=== PATIENT | female | born 1985 | race American Indian/Alaskan Native ===

== ENCOUNTER 2019-11-26 20:14 | Emergency (ER) | payer OTHER ==
[~2019-11-26] VITALS: Ht 162.6 cm; Wt 72.6 kg
--- OUTSIDE RECORDS SUMMARY | ~2019-11-26 | XMS | Encounter Summary ---
Demographics + + + | Address | [address] | | | [place] [address] | + + + | Home Phone | | + + + | Preferred Language | Unknown | + + + | Marital Status | Single | + + + | Restoration Affiliation | Unknown | + + + | Race | or | + + + | Ethnic Group | Not or | + + + Author + + + | Author | [facility] | + + + | Organization | [facility] | + + + | Address | Unknown | + + + | Phone | Unavailable | + + + Support + + +---------+ + | Name | Relationship | Address | Phone | + + +---------+ + | Rajesh Munoz | ECON | Unknown | | + + +---------+ + Care Team Providers + +------+ + | Care Instructor Dramatic Arts Name | Role | Phone | + +------+ + | No Pcp Per Patient | PCP | Unavailable | + +------+ + Encounter Details +--------+ + + + + | Date | Type | Department | Care Team | Description | +--------+ + + + + | 11/27/ | Telephone | Family Medicine at | Buzz Ramirez, | | | 2018 | | Johnathon Pina | [place], [employer] [address] | | | | | [address] | Division [facility] | | | | | [place], [place] | [address] [place], [place] | | | | | [address] | [address] | | | | | [phone] | [phone] | | | | | | | | +--------+ + + + + Social History + + + +--------+------+ | Tobacco Use | Types | Packs/Day | Years | Date | | | | | Used | | + + + +--------+------+ | Current Every Day | Cigarettes, | | | | | Smoker | E-cigarettes | | | | + + + +--------+------+ + +---+---+---+ | Smokeless Tobacco: | | | | | Never Used | | | | + +---+---+---+ + + | Comments: 1-2 cigarettes daily - currently quitting | + + + + +---------+ + | Alcohol Use | Drinks/Week | oz/Week | Comments | + + +---------+ + | No | | | | + + +---------+ + + + + | Sex Assigned at | Date Recorded | | | | + + + | Not on file | | + + + + + + + | Job Start Date | Occupation | Industry | + + + + | Not on file | Not on file | Not on file | + + + + + + + + | Travel History | Travel Start | Travel End | + + + + + + | No recent travel history available. | + + documented as of this encounter Plan of Treatment Not on filedocumented as of this encounter Visit Diagnoses Not on filedocumented in this encounter"
--- OUTSIDE RECORDS SUMMARY | ~2019-11-26 | XMS | Encounter Summary ---
Demographics + + + | Address | [address] | | | [place] [address] | + + + | Home Phone | | + + + | Preferred Language | Unknown | + + + | Marital Status | Single | + + + | Anabaptist Affiliation | Unknown | + + + | Race | or | + + + | Ethnic Group | Not or | + + + Author + + + | Author | [facility] | + + + | Organization | [facility] | + + + | Address | Unknown | + + + | Phone | Unavailable | + + + Support + + +---------+ + | Name | Relationship | Address | Phone | + + +---------+ + | Rajesh Munoz | ECON | Unknown | | + + +---------+ + Care Team Providers + +------+ + | Care Financial Administration Officer Name | Role | Phone | + +------+ + | No Pcp Per Patient | PCP | Unavailable | + +------+ + Reason for Visit + + + | Reason | Comments | + + + | Referral | L knee | + + + Encounter Details +--------+ + + + + | Date | Type | Department | Care Team | Description | +--------+ + + + + | 11/26/ | Abstract | Orthopaedics at | Note, Orthopedics | Referral (L knee) | | 2019 | | [facility] [address] | [facility] | | | | | [place] Mailcode: [id number] | | | | | | [facility] | | | | | | and Healing, | | | | | | Building | | | | | | Floor [place], [place] | | | | | | [phone] | | | | | | [phone] | | | +--------+ + + + [...] + + documented as of this encounter Progress Amira Mendiola - 11/26/2018 3:55 PM PST Orthopaedics New Patient Record Check List Procedure Comments Date requested Records/Imaging received? If so, what format? Where? What would you like to be seen for (body part and laterality)? L knee mensicus tear DOI, if applicable? Couple years Prior Surgery? No Have you seen anyone for this yet? Yes, when: where: [facility] in [place] 11/26 requested via phone MRI Yes, when: March; where: [facility] 11/26 X-Ray Yes, when: March; where: [facility] No Ultrasound Yes, when: 2 mo ago where: [facility] Other imaging No Type: Is this a W/C injury? no If YES, create referral and complete: .[email or web address] inside referral For Out of State claims, please make patient aware that we do not take Out of State Worker' s Comp unless their crop adjuster can secure [place] rates. We do not accept WC under [place] [employer] as they do not pay at [place] rates. Can you confirm the insurance we will be billing for this visit? (Reminder: Please create Referrals for pts with: HMO, OHP, [place], Self-Pay, W/C, TPL a nd ED Post- Ops) Medicaid Are you a current smoker or tobacco user? yes If YES, please let patient know that they must be 4 weeks smoke/tobacco-free, tested and do cumented by PCP before having a surgical consult. Height & Weight, if unable to locate in notes or chart. Last recorded patient height: 11/26/18 1.626 m (5' 4") Wt on (11/26/2018) 90 kg (198 lb 8 oz) Last 1 Encounter BMI Readings: Date BMI 11/26/2018 34.07 kg/m2 Patient reported height: n/a Patient reported weight: Note: If over provider BMI preference, for REVIEW. Are you diabetic? no No results found for: A1C Patient reported A1C: Do you have a referring provider? yes who: Buzz Ramirez How far will you be traveling for this appointment? local Note: If patient traveling greater than 1 hour, consider coordinating any additional testing or appointments. Medical Review needed? no If yes, create referral Reminders: ? Ask patient if they d like to sign up for MyChart ? Don t forget to pull in CareEveryWhere Additional Comments: documented in this encounte r Plan of Treatment Not on filedocumented as of this encounter Visit Diagnoses Not on filedocumented in this encounter
--- OUTSIDE RECORDS SUMMARY | ~2019-11-26 | XMS | Encounter Summary ---
Demographics + + + | Address | [address] | | | [place] [address] | + + + | Home Phone | | + + + | Preferred Language | Unknown | + + + | Marital Status | Single | + + + | Shinto Affiliation | Unknown | + + + | Race | or | + + + | Ethnic Group | Not or | + + + Author + + + | Author | [facility] | + + + | Organization | [facility] | + + + | Address | Unknown | + + + | Phone | Unavailable | + + + Support + + +---------+ + | Name | Relationship | Address | Phone | + + +---------+ + | Rajesh Munoz | ECON | Unknown | | + + +---------+ + Care Team Providers + +------+ + | Care Bakelite Molder Name | Role | Phone | + [...] 2018 | | Johnathon Pina | [place], [employer] [address] | | | | | [address] | Division [facility] | | | | | [place], [place] | [address] [place], [place] | | | | | [address] | [address] | | | | | [phone] | [phone] | | | | | | | [...]
--- OUTSIDE RECORDS SUMMARY | ~2019-11-26 | XMS | Encounter Summary ---
Demographics + + + | Address | [address] | | | [place] [address] | + + + | Home Phone | | + + + | Preferred Language | Unknown | + + + | Marital Status | Single | + + + | Islam Affiliation | Unknown | + + + | Race | or | + + + | Ethnic Group | Not or | + + + Author + + + | Author | [facility] | + + + | Organization | [facility] | + + + | Address | Unknown | + + + | Phone | Unavailable | + + + Support + + +---------+ + | Name | Relationship | Address | Phone | + + +---------+ + | Rajesh Munoz | ECON | Unknown | | + + +---------+ + Care Team Providers + +------+ + | Care Property Insurance Claims Examiner Name | Role | Phone | + +------+ + | No Pcp Per Patient | PCP | Unavailable | + +------+ + Reason for Referral Benefits Check (Urgent) +--------+--------+ + + + + | Status | Reason | Specialty | Diagnoses / | Referred By | Referred To | | | | | Procedures | Contact | Contact | +--------+--------+ + + + + | Closed | | Orthopedics | Diagnoses | James, | Javan, | | | | | Pain and | Buzz Diehl, | Danielle Ferreira, | | | | | swelling of | DNP, CHILD CARE EDUCATION COORDINATOR-C | MD [address] | | | | | left knee | [address] | | | | | [address] | [address] | [place], [place] | | | | | cyst, left | [address] | [address] | | | | | Meniscal | [place], [place] | Phone: | | | | | injury, | [address] | [phone] | | | | | left, | Phone: | Fax: | | | | | initial | [phone] | [phone] | | | | | encounter | Fax: | | | | | | Procedures | [phone] | | | | | | CONSULT TO | | | | | | | ORTHOPEDICS | | | | | | | AND | | | | | | | REHABILITATI | | | | | | | ON | | | +--------+--------+ + + + + Reason for Visit + + + | Reason | Comments | + + + | Knee pain | left knee swelling since Dec. has been seen in the E.D and states | | | her knee was drained but it swelled up again. unable to bear | | | weight on left leg | + + + | N&V - Nausea and | vomited last night 4 times which she states was due to her pain. | | vomiting | | + + + Encounter Details +--------+---------+ + + + | Date | Type | Department | Care Team | Description | +--------+---------+ + + + | 11/26/ | Office | Family Medicine at | Buzz Ramirez, | Pain and swelling of | | 2019 | Visit | Johnathon Pina | DNP, CHILD CARE EDUCATION COORDINATOR-C [address] | left knee (Primary | | | | [address] | [address] | Dx); Gill's cyst, | | | | [place], [place] | [address] [place], [place] | left; [place] | | | | [address] | [address] | injury, left, | | | | [phone] | [phone] | initial encounter | | | | | | | +--------+---------+ + + + Social History + + [...] | | + +---+---+---+ + + | Tobacco Cessation: Ready to Quit: Yes | | Comments: 1-2 cigarettes daily - currently [...] + + documented as of this encounter Last Filed Vital Signs + + + + + | Vital Sign | Reading | Time Taken | Comments | + + + + + | Blood Pressure | 116/67 | 11/26/2018 9:47 AM | | | | | PST | | + + + + + | Pulse | 90 | 11/26/2018 9:47 AM | | | | | PST | | + + + + + | Temperature | 37.2 C (98.9 F) | 11/26/2018 9:47 AM | | | | | PST | | + + + + + | Respiratory Rate | - | - | | + + + + + | Oxygen Saturation | 97% | 11/26/2018 9:47 AM | | | | | PST | | + + + + + | Inhaled Oxygen | - | - | | | Concentration | | | | + + + + + | Weight | 90 kg (198 lb 8 oz) | 11/26/2018 9:47 AM | | | | | PST | | + + + + + | Height | 162.6 cm (5' 4") | 11/26/2018 9:47 AM | | | | | PST | | + + + + + | Body Mass Index | 34.07 | 11/26/2018 9:47 AM | | | | | PST | | + + + + + documented in this encounter Patient Instructions Patient Instructions Buzz Ramirez, NERISSA, CHILD CARE EDUCATION COORDINATOR-C - 11/26/2018 9:15 AM PSTNaproxen 500 mg twice daily was prescribed. Please do not exceed 1,500 mg in 24 hours. Avoid taking ibuprof en while taking this medication. May use tylenol 650mg orally every 4-6 hours as needed for pain. Not to exceed 3,000mg in 2 4 hours. I will call with results of all labs If you develop fevers, persistent vomiting due to pain please go to the nearest emergency d epartment For your knee pain: R Rest: walk as tolerated, don't over do it. I Ice packs for 20 minutes 2-3 times a day C Compression: You can use an elastic bandage as needed to control swelling and pain E Elevation: try to keep your leg above your heart, like up on a pillow when you are sittin g. Please establish with primary care for all ongoing medical needs - For an appointment in [facility]) - Family Medicine, please call: [phone]. - For an appointment in Family Medicine at [facility], please call: [phone]. - For an appointment at the [facility] ([facility]), please call: [phone] . - For an appointment at the [facility], please call: [phone] - For an appointment at the Family Medicine [facility] ([place]), please call: [phone] Referral Process for Orthopedics Your health care provider would like you to see a specialist at another clinic. This is mary ellen led a referral. You have been referred to the [facility] Orthopedics ([facility] doctors). ? Your referral will be sent to this department within one week. ? After they receive your referral, it may need to be reviewed before you are offered an ap pointment. ? Orthopedics will then call you to offer you an appointment. Please make sure we have your current phone number. Tell our front worker staff if your numbe r has changed. If you have not heard from the Orthopedics Clinic in 2 weeks, please call them at . To update your phone number, or if you have questions about this process, please call us. [facility] has a walk-in orthopedics clinic. They are located at: Address: [address] [place] [address] [address] [address], [address], [place] [address] documented in this encounter Progress Notes Dawood Shetty MA - 11/26/2018 9:15 AM PSTFormatting of this note might be different fro m the original. Patient presents for blood draw per Providers order Site: right Hand 1st attempt by Dawood Shetty MA Time: 10:44 AM Patient tolerated well Administrations This Visit ketorolac (TORADOL) injection 30 mg Admin Date 11/26/2018 Action Given Dose 30 mg Route intramuscular Administered By Dawood Shetty MA Admin Date 11/26/2018 Action Given Dose 30 mg Route intramuscular Administered By Dawood Shetty MA Buzz Henson DN P, CHILD CARE EDUCATION COORDINATOR-C - 11/26/2018 9:15 AM PSTFormatting of this note might be different from the origin al. Sandra Munoz is a 33 y.o. female patient of No Pcp Per PATIENT who presents to walk in clinic today with complaints of Chief Complaint Patient presents with Knee pain left knee swelling since Dec. has been seen in the E.D and states her knee was drained bu t it swelled up again. unable to bear weight on left leg N&V - Nausea and vomiting vomited last night 4 times which she states was due to her pain. Subjective HPI Sandra Munoz is a 33 y.o. female who is in Walk In Clinic today for eval of chronic knee effusion of left knee. Has never been this bad. Had 2 Bakers cysts in the past month a nd had to quit job due to this. It was last drained 11/11/18 at [place] and they wanted to test it for gout. She hasn't heard the results. [facility] in [place], [place] . She has been unable to sleep due to nausea. Vomited 3-4 times last night, cannot bend or e xtend and has difficulty walking. Her aunt brought her to the walk-in clinic today. [place] Gill's cyst rupture about 2 weeks ago. Swelling is gone from the cyst but still with pain in the calf. History of torn meniscus in Dec 2017. Had MRI at that time. Does not have records. Also had US and knee xray 1 mo ago in the ED. Has been seen at [facility] and in [place] and [facility] in [place]. Mother with history of arthritis. No PCP currently. Just moved to [place]. Was referred to ortho From [facility] but has had di fficulties scheduling. Ortho says sports med, sports med says ortho. Review of Systems Constitutional: Positive for chills. Negative for fever. Respiratory: Positive for shortness of breath (due to asthma ). Negative for cough. Cardiovascular: Negative for chest pain and palpitations. Gastrointestinal: Positive for abdominal pain, nausea and vomiting (last night at 11:30pm w as the last time ). Musculoskeletal: Positive for joint pain. Neurological: Negative for tingling and sensory change. Psychiatric/Behavioral: Negative for substance abuse. All other systems reviewed and are negative. Social History Social History Marital status: Single Spouse name: N/A Number of children: N/A Years of education: N/A Occupational History unemployed Social History Main Topics Smoking status: Current Every Day Smoker Types: Cigarettes, E-cigarettes Smokeless tobacco: Never Used Comment: 1-2 cigarettes daily - currently quitting Alcohol use No Drug use: No Sexual activity: Not on file Other Topics Concern Not on file Social History Narrative Currently unemployed. Quit job at [employer] due to chronic knee issues. Family History Problem Relation Arthritis Mother Hypertension Father Lupus Maternal Grandmother Diabetes Paternal Grandmother Diabetes Paternal Grandfather Patient's last menstrual period was 11/09/2018 (approximate). Objective Filed Vitals: 11/26/2018 9:47 AM Height: 1.626 m (5' 4") Weight: 90 kg (198 lb 8 oz) BP: 116/67 Pulse: 90 Temp: 37.2 C (98.9 F) TempSrc: Oral SpO2: 97% PainSc: 10 - Worst Possible Pain PainLoc: Knee (Left) BMI: 34.07 kg/(m^2) Estimated body mass index is 34.07 kg/m as calculated from the following: Height as of this encounter: 1.626 m (5' 4"). Weight as of this encounter: 90 kg (198 lb 8 oz). Facility age limit for growth percentiles is 18 years. Physical Exam Constitutional: She is oriented to person, place, and time. Vital signs are normal. She mayda ears well-developed and well-nourished. She does not appear ill. No distress. HENT: Head: Normocephalic. Eyes: Pupils are equal, round, and reactive to light. Neck: Normal range of motion. Cardiovascular: Normal rate, regular rhythm and normal heart sounds. Pulmonary/Chest: Effort normal and breath sounds normal. No respiratory distress. She has n o wheezes. She has no rhonchi. She has no rales. Musculoskeletal: Left knee: She exhibits decreased range of motion, swelling (warmth ) and effusion. Sh e exhibits no ecchymosis, no deformity, no laceration and no erythema. Tenderness (general ) found. Exam limited due to pain Left knee with swelling, warmth, generalized pain, decreased ROM Neurological: She is alert and oriented to person, place, and time. Skin: Skin is warm and dry. She is not diaphoretic. Psychiatric: She has a normal mood and affect. Her behavior is normal. Judgment and thought content normal. Nursing note and vitals reviewed. Assessment and Plan 1. Pain and swelling of left knee - ketorolac (TORADOL) injection 30 mg; Inject 30 mg into the muscle (IM) once. - ketorolac (TORADOL) injection 30 mg; Inject 30 mg into the muscle (IM) once. - COMPLETE METABOLIC SET (NA,K,CL,CO2,BUN,CREAT,GLUC,CA,AST,ALT,BILI TOTAL,ALK PHOS,ALB,PRO T TOTAL); Future - URIC ACID, PLASMA - CBC AND AUTO DIFF - naproxen 500 mg oral tablet; Take 1 tablet by mouth every twelve hours. Dispense: 20 tab let; Refill: 0 - CONSULT TO ORTHOPEDICS AND REHABILITATION 2. Gill's cyst, left - CONSULT TO ORTHOPEDICS AND REHABILITATION 3. Meniscal injury, left, initial encounter - CONSULT TO ORTHOPEDICS AND REHABILITATION Chart reviewed: no labs to review US Vasc Venous Lower Ext Left 10/21/2018: IMPRESSION: 1.No sonographic evidence for left lower extremity deep venous thrombosis. 2.Presumed complex Gill's cyst. Internal hemorrhage or infectious component to be considered. Xray left knee 10/21/2018 IMPRESSION: 1.Joint effusion could be related to internal derangement, acute trauma or septic arthritis in the appropriate clinical setting. MRI would provide more sensitive evaluation. Patient reports history of torn meniscus left knee 1 year ago. Had MRI though no results av ailable for review. 1 mo with Complex Gill's cyst and concern for internal derangement vs septic arthritis. No with increased pain, swelling, warmth and dec ROM. [facility] patient states she has been unable to schedule due to conflicting departments orth o vs sports med. Will replace order for [facility] ortho. Advised that patient obtain MRI results and bring with to ortho appts. Also advised to est with PCP for all ongoing medical needs. She agrees. Medications, supportive care, warnings signs and symptoms reviewed, indications to return t o clinic or seek emergent care discussed. Patient instructions given with AVS. Patient expresses understanding and agrees with plan. Buzz Ramirez DNP, FNP-C documented in this encounter Plan of Treatment + +------+--------+ + + | Name | Type | Priori | Associated Diagnoses | Order Schedule | | | | ty | | | + +------+--------+ + + | COMPLETE METABOLIC | Lab | Routin | Pain and swelling | Expected: 11/26/2018 | | SET | | e | of left knee | (Approximate), | | (NA,K,CL,CO2,BUN,CRE | | | | Expires: 12/27/2019 | | AT,GLUC,CA,AST,ALT,B | | | | | | CHELA TOTAL,ALK | | | | | | PHOS,ALB,PROT TOTAL) | | | | | + +------+--------+ + + documented as of this encounter Procedures + +--------+ + + + | Procedure Name | Priori | Date/Time | Associated Diagnosis | Comments | | | ty | | | | + +--------+ + + + | CBC AND AUTO DIFF | Routin | 11/26/2018 | Pain and swelling | Results for this | | | e | 10:43 AM | of left knee | procedure are in the | | | | PST | | results section. | + +--------+ + + + | CBC, WITH | Routin | 11/26/2018 | Pain and swelling | Results for this | | DIFFERENTIAL | e | 10:43 AM | of left knee | procedure are in the | | | | PST | | results section. | + +--------+ + + + | URIC ACID, PLASMA | Routin | 11/26/2018 | Pain and swelling | Results for this | | | e | 10:43 AM | of left knee | procedure are in the | | | | PST | | results section. | + +--------+ + + + documented in this encounter Results CBC AND AUTO DIFF (11/26/2018 10:43 AM PST) + + + + + + | Component | Value | Ref Range | Performed | Pathologist | | | | | At | Signature | + + + + + + | WHITE CELL | 14.82 (H) | 3.50 - 10.80 | [facility] | | | COUNT | | K/cu mm | LABORATORY | | | | | | SERVICES, | | | | | | CORE | | + + + + + + | RED CELL | 4.94 | 4.00 - 5.20 | [facility] | | | COUNT | | M/cu mm | LABORATORY | | | | | | SERVICES, | | | | | | CORE | | + + + + + + | HEMOGLOBIN | 13.4 | 12.0 - 16.0 | [facility] | | | | | g/dL | LABORATORY | | | | | | SERVICES, | | | | | | CORE | | + + + + + + | HEMATOCRIT | 41.5 | 36.0 - 46.0 % | [facility] | | | | | | LABORATORY | | | | | | SERVICES, | | | | | | CORE | | + + + + + + | MCV | 84.0 | 80.0 - 100.0 fL | [facility] | | | | | | LABORATORY | | | | | | SERVICES, | | | | | | CORE | | + + + + + + | MCHC | 32.3 | 32.0 - 36.0 | [facility] | | | | | g/dL | LABORATORY | | | | | | SERVICES, | | | | | | CORE | | + + + + + + | RDW SD | 41.9 | 35.1 - 46.3 fL | [facility] | | | | | | LABORATORY | | | | | | SERVICES, | | | | | | CORE | | + + + + + + | PLATELET | 418 (H) | 150 - 400 K/cu | [facility] | | | COUNT | | mm | LABORATORY | | | | | | SERVICES, | | | | | | CORE | | + + + + + + | MPV | 11.0 | 9.7 - 12.3 fL | [facility] | | | | | | LABORATORY | | | | | | SERVICES, | | | | | | CORE | | + + + + + + | NRBC% | 0.0 | 0.0 - 0.3 % | [facility] | | | | | | LABORATORY | | | | | | SERVICES, | | | | | | CORE | | + + + + + + | NRBC# | 0.00 | 0.00 - 0.02 | [facility] | | | | | K/cu mm | LABORATORY | | | | | | SERVICES, | | | | | | CORE | | + + + + + + | NEUTROPHIL | 76.1 (H) | 50.0 - 70.0 % | [facility] | | | % | | | LABORATORY | | | | | | SERVICES, | | | | | | CORE | | + + + + + + | LYMPHOCYTE | 17.4 (L) | 18.0 - 42.0 % | [facility] | | | % | | | LABORATORY | | | | | | SERVICES, | | | | | | CORE | | + + + + + + | MONOCYTE % | 4.6 | 3.5 - 9.0 % | [facility] | | | | | | LABORATORY | | | | | | SERVICES, | | | | | | CORE | | + + + + + + | EOS % | 0.8 (L) | 1.0 - 3.0 % | [facility] | | | | | | LABORATORY | | | | | | SERVICES, | | | | | | CORE | | + + + + + + | BASO % | 0.4 | 0.0 - 2.0 % | [facility] | | | | | | LABORATORY | | | | | | SERVICES, | | | | | | CORE | | + + + + + + | IG% | 0.7Comment: Increased | 0.0 - 1.0 % | [facility] | | | | immature granulocytes | | LABORATORY | | | | (IG) define a left | | SERVICES, | | | | shift. Immature | | CORE | | | | granulocytes (IG) are an | | | | | | automated count of | | | | | | metamyelocytes, | | | | | | myelocytes and | | | | | | promyelocytes. Bands | | | | | | are not included in the | | | | | | IG count. Bands are | | | | | | included in the | | | | | | neutrophil count. | | | | + + + + + + | NEUTROPHIL | 11.28 (H) | 1.80 - 7.70 | [facility] | | | # | | K/cu mm | LABORATORY | | | | | | SERVICES, | | | | | | CORE | | + + + + + + | LYMPHOCYTE | 2.58 | 1.00 - 4.80 | [facility] | | | # | | K/cu mm | LABORATORY | | | | | | SERVICES, | | | | | | CORE | | + + + + + + | MONOCYTE # | 0.68 | 0.10 - 0.90 | [facility] | | | | | K/cu mm | LABORATORY | | | | | | SERVICES, | | | | | | CORE | | + + + + + + | EOS # | 0.12 | 0.00 - 0.50 | [facility] | | | | | K/cu mm | LABORATORY | | | | | | SERVICES, | | | | | | CORE | | + + + + + + | BASO # | 0.06 | 0.00 - 0.10 | [facility] | | | | | K/cu mm | LABORATORY | | | | | | SERVICES, | | | | | | CORE | | + + + + + + | IG# | 0.10 | 0.00 - 0.10 | [facility] | | | | | K/cu mm | LABORATORY | | | | | | SERVICES, | | | | | | CORE | | + + + + + + + + | Specimen | + + | Blood - Blood | | (substance) | + + + + + | Narrative | Performed At | + + + | Increased immature granulocytes (IG) define a left shift. | [facility] | | Immature granulocytes (IG) are an automated count of metamyelocytes, | LABORATORY | | myelocytes and promyelocytes. Bands are not included in the IG count. | SERVICES, CORE | | Bands are included in the neutrophil count. | | + + + + + + + + | Performing | Address | City/State/Zipcode | Phone Number | | Organization | | | | + + + + + | [facility] | [address] | [place] [address] | | | SERVICES, CORE | [address] | | | + + + + + URIC ACID, PLASMA (11/26/2018 10:43 AM PST) + +-------+ + + + | Component | Value | Ref Range | Performed | Pathologist | | | | | At | Signature | + +-------+ + + + | URIC ACID, | 3.8 | 2.5 - 6.2 mg/dL | [facility] | | | PLASMA | | | LABORATORY | | | (LAB) | | | SERVICES, | | | | | | CORE | | + +-------+ + + + + + | Specimen | + + | Blood - Blood | | (substance) | + + + + + + + | Performing | Address | City/State/Zipcode | Phone Number | | Organization | | | | + + + + + | [facility] | [address] | [place] [address] | | | SERVICES, CORE | [address] | | | + + + + + documented in this encounter Visit Diagnoses + + | Diagnosis | + + | Pain and swelling of left knee - Primary | + + | Gill's cyst, left | + + | Meniscal injury, left, initial encounter | + + documented in this encounter Administered Medications + +--------+ +-------+------+---------+ | Medication Order | MAR | Action | Dose | Rate | Site | | | Action | Date | | | | + +--------+ +-------+------+---------+ | ketorolac (TORADOL) injection | Given | 11/26/19 | 30 mg | | Right | | 30 mg 30 mg, intramuscular, | | 19 10:46 | | | Upper | | ONCE, 1 dose, 11/26/18 at 1100 | | AM PST | | | Quad. | | | | | | | Gluteus | + +--------+ +-------+------+---------+ +---+---+ | | | +---+---+ + +-------+ +-------+---+---------+ | ketorolac (TORADOL) injection | Given | 11/26/19 | 30 mg | | Right | | 30 mg 30 mg, intramuscular, | | 19 10:44 | | | Upper | | ONCE, 1 dose, 11/26/18 at 1100 | | AM PST | | | Quad. | | | | | | | Gluteus | + +-------+ +-------+---+---------+ +---+---+ | | | +---+---+ documented in this encounter
--- OUTSIDE RECORDS SUMMARY | ~2019-11-26 | XMS | Encounter Summary ---
Demographics + + + | Address | [address] | | | [place] [address] | + + + | Home Phone | | + + + | Preferred Language | Unknown | + + + | Marital Status | Single | + + + | Mosque Affiliation | Unknown | + + + | Race | or | + + + | Ethnic Group | Not or | + + + Author + + + | Author | [facility] | + + + | Organization | [facility] | + + + | Address | Unknown | + + + | Phone | Unavailable | + + + Support + + +---------+ + | Name | Relationship | Address | Phone | + + +---------+ + | Rajesh Munoz | ECON | Unknown | | + + +---------+ + Care Team Providers + +------+ + | Care Welder Setter Electron Beam Machine Name | Role | Phone | + +------+ + | No Pcp Per Patient | PCP | Unavailable | + +------+ + Reason for Visit + + + | Reason | Comments | + + + | Telephone follow-up | | + + + Encounter Details +--------+ + + + + | Date | Type | Department | Care Team | Description | +--------+ + + + + | 11/28/ | Telephone | Family Medicine at | Buzz Ramirez, | Telephone follow-up | | 2019 | | Johnathon Pina | NERISSA, FUNDING COORDINATOR-C [address] | | | | [address] | [facility] | | | | | [place], [place] | [address] [place], [place] | | | | | [address] | [address] | | | | | [phone] | [phone] | | | | | | | [...]
--- OUTSIDE RECORDS SUMMARY | ~2019-11-26 | XMS | Clinical Summary ---
Demographics + + + | Address | [address] | | | [place] [address] | + + + | Home Phone | | + + + | Preferred Language | Unknown | + + + | Marital Status | Single | + + + | Pentecostalism Affiliation | Unknown | + + + | Race | or | + + + | Ethnic Group | Not or | + + + Author + + + | Author | NON REVENUE LOCATIONS | + + + | Organization | NON REVENUE LOCATIONS | + + + | Address | Unknown | + + + | Phone | Unavailable | + + + Support + + +---------+ + | Name | Relationship | Address | Phone | + + +---------+ + | Rajesh Munoz | ECON | Unknown | | + + +---------+ + Care Team Providers + +------+ + | Care Manager Field Services Name | Role | Phone | + +------+ + | No Pcp Per Patient | PCP | Unavailable | + +------+ + Source Comments CHELA is fully live on both [facility] Ambulatory and [facility] InPatient.[facility] Allergies No Known Allergies Medications + + + +---------+------+------+-------+ | Medication | Sig | Dispensed | Refills | Star | End | Statu | | | | | | t | Date | s | | | | | | Date | | | + + + +---------+------+------+-------+ | naproxen 500 mg | Take 1 tablet by | 20 | 0 | 01/0 | | Activ | | oral | mouth every twelve | tablet | | 9/20 | | e | | tabletIndications: | hours. | | | 19 | | | | Pain and swelling of | | | | | | | | left knee | | | | | | | + + + +---------+------+------+-------+ Active Problems Not on file Family History + + +------+ + | Medical History | Relation | Name | Comments | + + +------+ + | Hypertension | Father | | | + + +------+ + | Lupus | Maternal | | | | | Grandmoth | | | | | er | | | + + +------+ + | Arthritis | Mother | | | + + +------+ + | Diabetes | Paternal | | | | | Grandfath | | | | | er | | | + + +------+ + | Diabetes | Paternal | | | | | Grandmoth | | | | | er | | | + + +------+ + + +------+ + + | Relation | Name | Status | Comments | + +------+ + + | Father | | Alive | | + +------+ + + | Maternal Grandmother | | Alive | | + +------+ + + | Mother | | Alive | | + +------+ + + | Paternal Grandfather | | | | + +------+ + + | Paternal Grandmother | | Alive | | + +------+ + + Social History + + + [...] recent travel history available. | + + Last Filed Vital Signs + + + [...] | | + + + + + Plan of Treatment + + + + + | Health Maintenance | Due Date | Last Done | Comments | + + + + + | Influenza (Flu) | | 09/18/2017, 08/12/2013, | | | vaccination (#1) | 9 | 08/09/2010 | | + + + + + | Pneumococcal | Completed | 12/31/2011 | | | vaccination | | | | + + + + + Results Not on filefrom Last 3 Months Insurance + +--------+ +--------+ + +--------+ | Payer | Benefi | Subscriber | Effect | Phone | Address | Type | | | t Plan | ID | jamie | | | | | | / | | Dates | | | | | | Group | | | | | | + +--------+ +--------+ + +--------+ | [place]ICAID [place] | OHP | [id number] | | [id number] | [address] | [address] | | | PLUS | | [address] | [id number] | id | | | OPEN | | esent | | [place], [place] | | | | CARD | | | | [phone] | | + +--------+ +--------+ + +--------+ + +--------+ +--------+ + + | Guarantor Name | Accoun | Relation to | Date | Phone | Billing Address | | | t Type | Patient | of | | | | | | | | | | + +--------+ +--------+ + + | Sandra Munoz | Person | Self | [birth year] | [address] | | | [place] | | 1985 | [phone] | [place] | | | [place] | | | 2 (Home) | [phone] | + +--------+ +--------+ + +
--- OUTSIDE RECORDS SUMMARY | ~2019-11-26 | XMS | Encounter Summary ---
Demographics + + + | Address | [address] | | | [place] [address] | + + + | Home Phone | | + + + | Preferred Language | Unknown | + + + | Marital Status | Single | + + + | Yarsanism Affiliation | Unknown | + + + | Race | or | + + + | Ethnic Group | Not or | + + + Author + + + | Author | [facility] | + + + | Organization | [facility] | + + + | Address | Unknown | + + + | Phone | Unavailable | + + + Support + + +---------+ + | Name | Relationship | Address | Phone | + + +---------+ + | Rajesh Munoz | ECON | Unknown | | + + +---------+ + Care Team Providers + +------+ + | Care Nick Setter Name | Role | Phone | + [...] 2019 | | Johnathon Pina | NERISSA, TRANSITIONAL CARE MANAGER-C [address] | | | | | [address] | [facility] | | | | | [place], [place] | [address] [place], [place] | | | | | [address] | [address] | | | | | [phone] | [phone] | | | | | | | [...]
--- OUTSIDE RECORDS SUMMARY | ~2019-11-26 | XMS | Clinical Summary ---
Demographics + + + | Address | [address] | | | [place] [address] | + + + | Home Phone | | + + + | Preferred Language | Unknown | + + + | Marital Status | Single | + + + | Gnosticist Affiliation | Unknown | + + + [...] Team Providers + +------+ + | Care Sole Edge Inker Machine Name | Role | Phone | + +------+ + | No Pcp Per Patient | PCP | Unavailable | + +------+ + Source Comments CHELA is fully live on both [facility] Ambulatory and [facility] InPatient.[facility] Allergies No Known Allergies Medications + [...] PLUS | | [id number] | [id number] | id | | | OPEN | | esent | | [place], [place] | | | | CARD | | | | [phone] | | + +--------+ +--------+ + +--------+ + +--------+ +--------+ + + | Guarantor Name | Accoun | Relation to | Date | Phone | Billing Address | | | t Type | Patient | of | | | | | | | | | | + +--------+ +--------+ + + | Sandra Munoz | Person | Self | [birth year] | | [address] | | | [place] | | 1985 | [phone] | [place] | | | prisc[place] | | | 2 (Home) | [phone] | + +--------+ +--------+ + +
--- OUTSIDE RECORDS SUMMARY | ~2019-11-26 | XMS | Encounter Summary ---
Demographics + + + | Address | [address] | | | [place] [address] | + + + | Home Phone [...] Author + + + | Author | [employer] [facility] | + + + | Organization | [facility] | + + + | Address | Unknown | + + + | Phone | Unavailable | + + + Support + + +---------+ + | Name | Relationship | Address | Phone | + + +---------+ + | Rajesh Munoz | ECON | Unknown | | + + +---------+ + Care Team Providers + +------+ + | Care Nicker And Breaker Name | Role | Phone | + [...] | | | swelling of | DNP, ELEVATOR CONSTRUCTOR HYDRAULIC-C | MD [address] | | | | | left knee | [address] | | | | | Bridget[address] | [place], [place] | | | | | cyst, left | [address] | [address] | | | | | Meniscal | [place], [place] | Phone: | | | | | injury, | [address] | [phone] | | | | | left, | Phone: | Fax: | | | | | initial | [phone] | [phone] | | | | | encounter | Fax: | | | | | | Procedures | [phone] | | | | | | CONSULT [...] | Visit | Johnathon Pina | DNP, ELEVATOR CONSTRUCTOR HYDRAULIC-C [address] | left knee (Primary | | | | [address] | [address] | Dx); Gill's cyst, | | | | [place], [place] | [address] [place], [place] | left; Meniscal | | | | [address] | [phone] | injury, left, | | | | [phone] | [phone] | initial encounter | | | | [...] Patient Instructions Patient Instructions Buzz Ramirez, NERISSA, ELEVATOR CONSTRUCTOR HYDRAULIC-C - 11/26/2018 9:15 AM PSTNaproxen 500 mg [...] medical needs - For an appointment in [facility]) - Family Medicine, please call: . - For an appointment in Family Medicine at [facility], please call: [phone]. - For an appointment at the [facility] ([facility]), please call: [phone] . - For an appointment at the Family Medicine [facility], please call: [phone] - For an appointment at the Family Medicine [facility] ([place]), please call: [phone] Referral Process for Orthopedics Your health care provider would like you to see a specialist at another clinic. This is mary ellen led a referral. You have been referred to the [facility] Orthopedics (bone doctors). ? Your referral will be sent to this department within one week. ? After they receive your referral, it may need to be reviewed before you are offered an ap pointment. ? Orthopedics will then call you to offer you an appointment. Please make sure we have your current phone number. Tell our front line supervisor staff if your numbe r has changed. If you have not heard from the Orthopedics Clinic in 2 weeks, please call them at . To update your phone number, or if you have questions about this process, please call us. [facility] has a walk-in orthopedics clinic. They are located at: Address: [address] [place] [address] [address] [place] [address], [address], [place] [address] documented in this encounter Progress Notes Dawood [...] Dawood Shetty MA Buzz Henson DN P, ELEVATOR CONSTRUCTOR HYDRAULIC-C - 11/26/2018 9:15 AM PSTFormatting of this [...] this. It was last drained 11/11/18 at [place] and they wanted to test it for gout. She hasn't heard the results. [facility] in [place], [place] . She has been unable to sleep due to nausea. Vomited 3-4 times last night, cannot bend or e xtend and has difficulty walking. Her aunt brought her to the walk-in clinic today. Cooper Gill's cyst rupture about 2 weeks ago. Swelling is gone from the cyst but still with pain in the calf. History of torn meniscus in Dec 2017. Had MRI at that time. Does not have records. Also had US and knee xray 1 mo ago in the ED. Has been seen at [facility] and in [place] and a [facility] in [place]. Mother with history of arthritis. No PCP currently. Just moved to [place]. Was referred to [facility]o [facility] but has had di fficulties scheduling. Ortho [...] ROM. [facility] patient states she has been unable to schedule due to conflicting departments orth o vs sports med. Will replace order for [facility] ortho. Advised that patient obtain MRI [...] [facility] | [address] | [place] [address] | | | SERVICES, CORE | PARK [...] | + + + + + | [id number] | [address] | [place] [address] | | | SERVICES, CORE | SIMON [...]
--- OUTSIDE RECORDS SUMMARY | ~2019-11-26 | XMS | Encounter Summary ---
Demographics + + + | Address | [address] | | | [place] [address] | + + + | Home Phone | | + + + | Preferred Language | Unknown | + + + | Marital Status | Single | + + + | Hindu Affiliation | Unknown | + + + | Race | or | + + + | Ethnic Group | Not or | + + + Author + + + | Author | [facility] | + + + [...] Team Providers + +------+ + | Care Plant Protection Superintendent Name | Role | Phone | + [...] (L knee) | | 2019 | | [facility] [address] | [facility] | | | | | Rosmery Mailcode: CH12A | | | | | | [facility] | | | | | | and Healing, | | | | | | Building | | | | | | Floor [place], [place] | | | | | | [address] | | | | | | [phone] | | | +--------+ + + + [...] Yes, when: where: [facility] [place] 11/26 requested via phone MRI Yes, when: March; where: [facility] 11/26 X-Ray Yes, when: March; where: [facility] No Ultrasound Yes, when: 2 mo ago where: [facility] Other imaging No Type: Is this a W/C injury? no If YES, create referral and complete: .ORTWCNEWPATIENT inside referral For Out of State claims, please make patient aware that we do not take Out of State Worker' s Comp unless their timing adjuster can secure [place] rates. We do not accept WC under [place] as they do not pay at [place] rates. Can you confirm the insurance we will be billing for this visit? (Reminder: Please create Referrals for pts with: HMO, OHP, [place], Self-Pay, W/C, TPL a nd ED Post- [...]
[~2019-11-26 20:14] MED LIST: CEPHALEXIN500 MG PO; NAPROXEN500 MG PO; NORCO 5-325 TA1 EACH PO; PREDNISONE20 MG PO
[2019-11-26] MEDS ORDERED: METHOTREXATE2.5 MG (20:33)
[2019-11-26] MEDS ORDERED: FOLIC ACID0.4 MG (20:34)
== END 2019-11-26 21:16 | disposition home or self-care (01) ==
LOC: ED 20:14
DX: S80.01XA Contusion of right knee, initial encounter (principal); X58.XXXA Exposure to other specified factors, initial encounter; J45.909 Unspecified asthma, uncomplicated; F17.200 Nicotine dependence, unspecified, uncomplicated; Z79.52 Long term (current) use of systemic steroids; Z79.899 Other long term (current) drug therapy
CPT/HCPCS: 73560; 99283-25; A9270

== ENCOUNTER 2019-12-11 12:44 | Inpatient (IN) | payer OTHER ==
[~2019-12-11] VITALS: Ht 162.6 cm; Wt 78.0 kg
[~2019-12-11 12:44] MED LIST changes: +FOLIC ACID1 MG PO; +METHOTREXATE2.5 MG PO
--- OUTSIDE RECORDS SUMMARY | 2019-12-11 12:48 | XMS ---
PreManage Notification: SHANIKA FOX Security Senior Analyst Events No recent Security Events currently on file CRITERIA MET - [facility] - 2 Visits in 30 Days CARE PROVIDERS LUCRECIA LÓPEZ [facility] PHONE: Unknown Nora has no Care Guidelines for this patient. E.Miguelangel VISIT COUNT (12 MO.) 2 [facility] TOTAL 2 NOTE: Visits indicate total known visits. ED/UCC VISIT TRACKING (12 MO.) 12/11/2019 12:45 [facility] [place] TYPE: Emergency COMPLAINT: - KNEE DRAINAGE 11/26/2019 20:14 [facility] [place] TYPE: Emergency COMPLAINT: - SKIN PROBLEM DIAGNOSES: - Other penitentiary (current) drug therapy - Contusion of right knee, initial encounter - oil heaterman (current) use of systemic steroids - Unspecified asthma, uncomplicated - Nicotine dependence, unspecified, uncomplicated - Exposure to other specified factors, initial encounter - Pain in right knee INPATIENT VISIT TRACKING (12 MO.) No inpatient visits to display in this time frame [email or web address]
--- NOTE | 2019-12-11 16:30 | NUR ---
34YR OLD WOMAN ADMITTED FROM ER VIA STRETCHER TO ROOM 107, PT ABLE TO SLIDE SELF FROM STRETCHER ON TO BED. PILLOW UNDER KNEES AND WARM BLANKET FOR COMFORT, RATES PAIN 7/10 WITH ANY MOVEMENT. DRSG WITH WANDY WRAP TO L KNEE, CDI. VANCOMYCIN STARTED IN ER AND CONT. INFUSING. NO REDNESS OR SWELLING AT IV SITE. ORIENTED TO ROOM AND CALL LIGHT.
--- NOTE | 2019-12-11 18:07 | NUR ---
DR ALAN IN TO SEE PT.
--- NOTE | 2019-12-11 18:31 | NUR ---
ATE 100% OF DINNER, COMPLETED JESSE MCKEON INFUSING, WATCHING TV, GRANDMOTHER HERE TO VISIT. DENIES FURTHER NEEDS. NPO ORDER NOTED, PT UNDERSTANDS.
--- NOTE | 2019-12-11 19:00 | NUR ---
SHIFT REPORT RECEIVED FROM DAYSHIFT NYDIA HUTCHINSON AT BEDSIDE. PT AWAKE AND RESTING IN BED, FAMILY IN ROOM. DENIES NEEDS, BOARD UPDATED. CALL LIGHT IN REACH.
--- NOTE | 2019-12-11 20:15 | NUR ---
SPOKE TO DR ALAN REGARDING CLARIFICATION ON NURSE NOTIFY ORDER. PER DR ALAN, ORDER PERTAINS TO ANESTHESIOLOGIST. PER DR ALAN OKAY TO REMOVE COABN WRAP AND LEAVE LEFT KNEE PHOTOLITHOGRAPHIC STRIPPER. ASSESSMENT COMPLETE, VSS. PT REPORTS 8/10 PAIN WITH MOVEMENT, TOLERABLE AT REST. GENERALIZED EDEMA TO BILATERAL KNEES, SLIGHTLY WARMER TO THE TOUCH COMPARED TO SURROUNDING SKIN.SALINE LOCKED, IV SITE WNL. PT DENIES ADDITIONAL NEEDS, CALL LIGHT IN REACH. FAMILY IN ROOM.
--- NOTE | 2019-12-11 22:15 | NUR ---
PT RESTING IN BED, EYES CLOSED. RESPIRATIONS EVEN AND UNLABORED. NO DISTRESS NOTED, FAMILY IN ROOM. WARM BLANKET PROVIDED TO PT'S GRANDMOTHER. CALL LIGHT IN REACH OF PT.
--- NOTE | 2019-12-11 23:35 | NUR ---
PT RESTING IN BED WITH EYES CLOSED, RESPIRATIONS EVEN AND UNLABORED. PT SOON TO BE NPO FOR SURGERY, PAIN ASSESSED. PRN TYLENOL ADMINISTERED FOR 8/10 PAIN IN BILATERAL KNEES.ADDITIONAL PILLOW PROVIDED, NO FURTHER NEEDS. CALL LIGHT IN REACH.
--- NOTE | 2019-12-12 01:48 | NUR ---
PT RESTING IN BED WITH EYES CLOSED, RR WNL. NO DISTRESS NOTED, CALL LIGHT IN REACH. FAMILY IN ROOM.
--- NOTE | 2019-12-12 03:00 | NUR ---
ASSESSMENT COMPLETE, NO NEW CHANGES OR CONCERNS. VSS, PT CONTINUES TO RATE PAIN 8/10, UNABLE TO GIVE TYLENOL AT THIS TIME. DISCUSSED PAIN MANAGEMENT WITH PT, HEAT PACKS DECLINED BY PT. PT DENIES NEED TO NOTIFY MD FOR ADDITIOANL PAIN CONTROL. IV ABX INFUSING, SEE EMAR. SITE WNL, FLUSHES EASILY. NO FURTHER NEEDS, CALL LIGHT IN REACH.
--- NOTE | 2019-12-12 05:01 | NUR ---
IV ABX COMPLETE, PT SALINE FLUSHED. SITE WNL. VS AND I&O'S COLLECTED AND STABLE. NO FURTHER NEEDS, FAMILY IN ROOM. CALL LIGHT IN EASY REACH.
--- NOTE | 2019-12-12 05:59 | NUR ---
LR BAG FOR OR PRIMED AND HANGING IN ROOM.
--- NOTE | 2019-12-12 07:14 | NUR ---
REPORT RECEIVED FROM NYDIA RAMÍREZ. PT RESTING ON RIGHT SIDE WITH EYES CLOSED. RESPIRATIONS EVEN AND UNLABORED. BED RAILS UP. CALL LIGHT WITHIN REACH. PT ALLOWED TO REST.
--- NOTE | 2019-12-12 07:56 | NUR ---
MORNING ASSESSMENT AND PRE-OP PREPARATIONS DUE. PT AWAKENS TO VOICE AND MOVMENT IN ROOM. PT REQUESTS TYLENOL FOR 8/10 PAIN, GIVEN WITH A SMALL SIP OF WATER. EDUCATION DONE WITH PT REGARDING OTHER MEDICATIONS. PT DECLINES FOLIC ACID AND PREDNISONE AT THIS TIME STATING "MAYBE I'LL TAKE THEM AFTER SURGERY." IV ABX STARTED. ASSESSMENT DONE. SWELLING TO BILATERAL KNEES CONTINUES, CMS INTACT. PT UP TO WIPE DOWN WITH CHG WIPES. LINENS CHANGED. FRESH GOWN PROVIDED. JEWERLY REMOVED. PT VOIDS WITHOUT ISSUE. PT BACK TO BED. VITALS TAKEN. PT STATES ALL HER QUESTIONS HAVE BEEN ANSWERED REGARDING SURGERY. NO ADDITIONAL REQUESTS OR COMPLAINTS. CALL LIGHT WITHIN REACH. BED RAILS UP.
--- NOTE | 2019-12-12 08:13 | CONS ---
[facility] [address] [place], [place] [address] Signed DATE OF CONSULTATION: REQUESTING PHYSICIAN: Cici Brody MD. HISTORY OF PRESENT ILLNESS: Sandra is a 34-year-old female with apparently history of rheumatoid arthritis, although the way in with that diagnosis was made is not immediately clear. As such, she has been treated in the past with methotrexate and with the prednisone which really has not given her much relief. She has had increasing pain in both of her knees over the last week or so. She presented to the emergency room today with increasing swelling and pain in both of her knees. Arthrocentesis of the left knee was performed, which revealed an increased white count with a left shift. She has otherwise been afebrile and has no other complaints suggestive of other infectious etiologies. She denies any trauma to either knee. PHYSICAL EXAMINATION: GENERAL: She is alert and oriented, in no acute distress. Certainly does not appear toxic. EXTREMITIES: The left knee has a Coban dressing applied to it and there is about a 2+ effusion in the left knee. However, both knees are cool to touch. There is no erythema. There is no induration. There is no drainage. NEUROVASCULAR: Unremarkable. Gentle range of motion of the knee is uncomfortable but not dramatically so. LABORATORY DATA: Results of her aspirate revealed 47,000 white cells with a significant left shift. 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 We have explained the potential risks and complications along with alternative methods of treatment. I told her that I think it would be best to take her to the operating room for an arthroscopic lavage of both of her knees. She was agreeable. We outlined all the potential risks and complications, and did not offer any guarantees nor did we employ any guarantees as to outcome. She is on antibiotics and will maintain them for the time being. After discussing the options, she is comfortable proceeding with bilateral knee arthroscopies in the morning. Chad Alan MD Electronically Signed By: CHAD ALAN MD 12/12/19812 PATIENT NAME: SANDRA FOX CONSULTATION DATE OF : 87 REPORT #: [id number] PHYSICIAN: CHAD ALAN MD PCP: [facility] REPORT IS CONFIDENTIAL AND NOT TO BE RELEASED WITHOUT AUTHORIZATION [facility] [address] [place] [address] Signed [facility]/DAJA /[id number] Copies: ~ Electronically Signed By: CHAD ALAN MD 12/12/19812 PATIENT NAME: SANDRA FOX CONSULTATION DATE OF : 87 REPORT #: [id number] PHYSICIAN: CHAD ALAN MD PCP: [facility] REPORT IS CONFIDENTIAL AND NOT TO BE RELEASED WITHOUT AUTHORIZATION
--- NOTE | 2019-12-12 09:33 | NUR ---
THIS RN TO ROOM TO CHECK ON PT. PT UPDATED ON PLAN OF CARE AND SURGERY TIME. IV FLUIDS STARTED PER MD ORDER. PT CONTINUES TO REPORT 8/10 PAIN, TALKING ON PHONE AND VISITING WITH FAMILY, NO ADDITIONAL MEDICATION GIVEN AT THIS TIME. SCD'S AT BEDSIDE BUT NOT IN PLACE. PT DECLINES AT THIS TIME R/T PAIN. NO ADDITIONAL REQUESTS OR COMPLAINTS AT THIS TIME. CALL LIGHT WITHIN REACH. FAMILY AT BEDSIDE.
--- NOTE | 2019-12-12 09:44 | NUR ---
OR TEAM ARRIVED. REPORT GIVEN TO NYDIA CARRILLO. QUESTIONS ASKED AND ANSWERED. PT TO [place].
--- NOTE | 2019-12-12 12:10 | NUR ---
PT RETURNED FROM SURGERY, REPORTS RECIEVED FROM NYDIA OTERO. PT REPORTS 7/10 PAIN AND NASUEA. SEE MAR FOR MEDICATION GIVEN. COPX IN PLACE WITH O2 AT 96% ON ROOM AIR. SCD'S PLACED PER MD ORDER. IV FLUDIS RESTARTED (SEE MAR). CMS INTACT. BILATERAL KNEE DRESSINGS C/D/I. FAMILY AT BEDSIDE. CALL LIGHT WITHIN REACH.
--- NOTE | 2019-12-12 12:35 | NUR ---
12/12/19 1235 [place],Elda De Jesus 1125: 4 MG IV MORPHINE GIVEN TO PATIETN BY ENVELOPE SEALING MACHINE OPERATOR. 1130: O2 MASK REMOVED PER PATIENT REQUEST. PATIENT DROWSY. 1135: 50 MCG IV FENTANYL GIVEN TO PATIENT BY ENVELOPE SEALING MACHINE OPERATOR. 1138: O2 MASK REPLACED ON PATIENT AT 6 L/MIN. 1155: PATIENT MORE ALERT AND TALKING WITH NURSE. FALLS BACK ASLEEP WHEN NOT DISTURBED. EASILY AWAKENS TO NAME. 1215: PATIENT TRANSFERRED BACK TO M/S ROOM 107. PATIENT TRANSFERRED SELF FROM STRETCHER TO BED. REPORT GIVEN TO M/S RN.
--- NOTE | 2019-12-12 13:21 | NUR ---
VITALS AND ASSESSMETN DUE. PT DENIES NAUEA AND REPORTS 6/10 PAIN THAT IS "GETTING BETTER." CMS INTACT. DRESSINGS C/D/I. 7-UP, WATER AND SALTINES PROVIDED. PT DECLINES PHYSICAL THERAPY AT THIS TIME. O2 AT 94% ON ROOM AIR. CPOX IN PLACE. NO ADDITIONAL REQUESTS OR COMPLAINTS AT THIS TIME. CALL LIGHT WITHIN REACH. FAMILY AT BEDSIDE.
[2019-12-12] MEDS ORDERED: PREDNISONE10 MG PO (13:38)
--- NOTE | 2019-12-12 13:39 | NUR ---
Medications reconciled with patient interview. She wasn't positive about prednisone dose
--- NOTE | 2019-12-12 14:00 | NUR ---
VITALS AND ASSESSMENT DUE. PT AWAKE AND ALERT. CMS INTACT, DRESSINGS C/D/I. SCD'S IN PLACE. PT REPORTS 6/10 PAIN AND DENIES NASUEA. PT TOLERATING FLUID AND CRACKERS. PT ASSISTED WITH ORDERING FOOD. ICE PACES IN PLACE OVER BILATERAL KNEES. IV FLUIDS DC'D PER MD ORDER PT IS TAKING ADEQUATE PO FLUIDS. I.S. PROVIDED. PT REACHES 1250ML. NO ADDITIONAL REQUESTS OR COMPLAINTS. CALL LIGHT WITHIN REACH.
--- NOTE | 2019-12-12 15:16 | NUR ---
ASSESSMENT AND MEDICATION DUE. PT RESTING IN BED WATCHING TV. PT REPORTS SHE WAS ABLE TO EAT PART OF HER MEAL WITHOUT NAUSEA AND IS "STILL WORKING ON IT." O2 AT 95% ON ROOM AIR. CMS INTACT. DRESSINGS C/D/I. PT DROWSY AND QUICKLY DRIFTS OFF TO SLEEP. NOW REPORTS 4/10 PAIN STATING PAIN IS TOLERABLE "IF I DON'T MOVE." PIV ASSESSED, FLUSHES EASILY WITH BLOOD RETURN NOTED. VANO STARTED (SEE MAR). PT ENCORUAGED TO VOID BUT STATES SHE ISN'T READY YET. PT REPORTS HEART BURN AND REQUESTS TUMS. WILL CONSULT MD. CALL LIGHT WITHIN REACH. BED RAILS UP. BED ALARM ON.
--- NOTE | 2019-12-12 16:54 | NUR ---
NYDIA GARCIA INFOMRED THIS RN THAT PTS PIV APPEARS TO BE INFILTRATED. PIV DC'D BY NYDIA GARCIA. NEW PIV STARTED IN RFA BY NYDIA GARCIA. MD AND PHARMACIST CONSULTED REGARDING INFILTRATION OF VANCO. ICE APPLIED TO INFILTRATION SITE AND SITE ELEVATED ABOVE THE LEVEL OF THE HEART PER MD AND PHARAMCIST INSTRUCTIONS. NEW PIV ASSESED, BLOOD RETURN NOTED, FLUSHES EASILY, VANCO INFUSION RESTRATED. PT ASSITED UP TO RESTROOM. VOIDS 700ML WITHOUT ISSUE. DINNER ORDER PLACED FOR PT. O2 SATURATION 96% ON ROOM AIR. PT DEMONSTRATES USE OF I.S. REACHING 1250. NEW ICE PACKS APPLIED TO BILATERAL KNEES. LINENS CHANGED RELATED TO LEAKING ICE PACKS AND WET SHEETS. NO ADDITIONAL REQUESTS OR COMPLAINTS. CALL LIGHT WITHIN REACH. BED RAILS UP.
--- NOTE | 2019-12-12 17:47 | NUR ---
PUMP ALARMING, VANCO INFUSION COMPLETE, PIV ASSESSED, WNL. BLOOD RETURN NOTED. PIV FLUSHED. VITALS TAKEN. MEDICAITON GIVEN. PIV SALINE LOCKED. ALCOHOL CAPS APPLIED. PT EATING DINNER AND TALKING ON PHONE. NO ADDITIONAL REQUESTS OR COMPLAINTS AT THIS TIME. CALL LIGHT WITHIN REACH.
--- NOTE | 2019-12-12 17:53 | NUR ---
PT HERE FOR BILATERAL KNEE EFFUSTIONS AND RA EXACERBATION. POST OP DAY ZERO FOR BILATERAL KEEN ARTHROSCOPY. SYNOVIAL FLUID LABS SENT. PRN NAUSEA MEDICATION GIVEN X1, PT ADVANCED TO REGULAR DIET, TOLERATING WELL. PRN AND SCHEDULED PAIN MEDICATIONS FOR 4-8/10 PAIN. IV ABX GIVEN. PIV TO LFA INFILTRATED WITH VANCO INFUSION, ICE AND ELEVATION IN PLACE PER PHARMACY AND MD ORDERS. TUMS ADDED TO EMAR FOR HEARTBURN. 1PA UP TO RESTROOM, VOIDING QUANTITY SUFFICIENT. PT PAINFUL WITH AMBULATION. PT USES CALL LIGHT APPROPRIATLY.
--- NOTE | 2019-12-12 18:45 | NUR ---
THIS RN TO ROOM TO CHECK ON PT. PT VISITING WITH FAMILY. PT DENIES PAIN AND NAUSEA AT THIS TIME. RAITING PAIN AT 0/10. NO ADDITIONAL REQUESTS OR COMPLAINTS AT THIS TIME. CALL LIGHT WITHIN REACH.
--- NOTE | 2019-12-12 19:00 | NUR ---
SHIFT REPORT RECEIVED FROM LUCYCTCATHLEEN BRENNER AT BEDSIDE. PT AWAKE AND RESTING IN BED, DENIES NEEDS. SALINE LOCKED. CALL LIGHT IN REACH.
--- NOTE | 2019-12-12 20:44 | NUR ---
ASSESSMENT COMPLETE, SCHEDULED MOM AND PRN PAIN MEDICATION GIVEN (SEE EMAR). PT A/OX4, VSS. PT ON RA, CPOX IN PLACE. SCD'S ON, DRESSING TO BILATERAL KNEES CDI. NO SHADOWING OR DRAINAGE NOTED. WILL MONITOR. ICE TO KNEES FOR PAIN CONTROL AND ICE TO LEFT FOREARM R/T INFILRATION ON DAYSHIFT, EXTREMITY ALSO ELEVATED. IV SITE WNL, FLUSHES EASILY. BLOOD RETURN NOTED, SALINE LOCKED. PT TOLERATING ORAL INTAKE, DENIES NAUSEA. BED PREPARED FOR PT'S BOYFRIEND. NO FURTHER NEEDS VERBALIZED, CALL LIGHT IN REACH.
--- NOTE | 2019-12-12 22:50 | NUR ---
NEW IV PLACED BY FLOAT NYDIA OSBORN TO LEFT HAND ON FIRST ATTEMPT. 20 GAUGE, BLOOD RETURN NOTED. SALINE LOCKED. NO ADDITIONAL NEEDS, CALL LIGHT IN REACH.
--- NOTE | 2019-12-12 23:24 | NUR ---
PT RESTING IN BED WITH EYES CLOSED, RESPIRATIONS EVEN AND UNLABORED. NO DISTRESS NOTED, CALL LIGHT IN REACH. BOYFRIEND IN ROOM.
--- NOTE | 2019-12-13 00:45 | NUR ---
SCHEDULED PAIN MEDICATION GIVEN (SEE EMAR). PT DROWSY AND RESTING IN BED WITH EYES CLOSED. AWOKE BRIEFLY, DENIES PAIN. CPOX IN PLACE, O2 SAT AND HR WNL. NO NEEDS VERBALIZED AT THIS TIME, CALL LIGHT IN REACH.
--- NOTE | 2019-12-13 02:20 | NUR ---
PT RESTING IN BED WITH EYES CLOSED. NO RESPIRATORY DISTRESS NOTED, CPOX IN PLACE. O2 SAT 94% ON RA, HR 70'S. SCD'S CIVIL ENGINEERING DRAFTSPERSON LIGHT IN REACH. BOYFRIEND IN ROOM, ALSO SLEEPING.
--- NOTE | 2019-12-13 02:50 | NUR ---
ASSESSMENT COMPLETE, NO NEW CHANGES OR CONCERNS. PT A/O, DROWSY BUT AWOKE EASILY. VSS, CPOX IN PLACE. PT DENIES PAIN, DRESSINGS TO BILATERAL KNEES CDI. SCD'S ON. SCHEDULED IV VANCO INFUSING, SITE WNL. FLUSHES EASILY. IV SITE TO RIGHT FOREARM DISCONTINUED PER PT REQUEST. TIP INTACT. NO ADDITIONAL NEEDS, FRESH WATER AT BEDSIDE. CALL LIGHT IN REACH.
--- NOTE | 2019-12-13 04:26 | NUR ---
PT SLEPT WELL THROUGHOUT THE SHIFT. VSS, CPOX IN PLACE. SBA WITH AMBULATION, USES CALL LIGHT APPROPERAITELY. A/OX4, PAIN WELL CONTROLLED WITH SCHEDULED TORADOL AND PRN TRAMADOL. DRESSINGS TO BILATERAL KNEES C/D/I. ICE FOR COMFORT PRN. SCD'S ON. NEW IV PLACED TO LEFT HAND, SITE WNL. SALINE LOCKED WITH SCHEDULED IV ABX. REGULAR DIET, TOLERATING WELL. NO NAUSEA REPORTED. BOYFRIEND STAYED THE NIGHT WITH PT.
--- NOTE | 2019-12-13 06:30 | NUR ---
SCHEDULED IV PAIN MEDICATION GIVEN (SEE EMAR). VS AND I&O'S DONE AND STABLE. NO FURTEHR NEEDS, CALL LIGHT IN REACH. SCD'S ON. BOYFRIEND IN ROOM.
--- NOTE | 2019-12-13 07:03 | NUR ---
REPORT RECEIVED FROM NYDIA RAMÍREZ. PT RESTING ON RIGHT SIDE. O2 AT 95% ON ROOM AIR, HR = 68. BED RAILS UP. CALL LIGHT WITHIN REACH. PT ALLOWED TO REST.
--- NOTE | 2019-12-13 08:00 | NUR ---
PATIENT WAS RESTING IN THE BED. ROOM PICKED UP. WATER REFRESHED. CALL LIGHT IN REACH. NO FURTHER NEEDS AT THIS TIME.
--- NOTE | 2019-12-13 08:33 | NUR ---
MORNING ASSESSMENT AND MEDICATIONS DUE. PT RESTING ON LEFT SIDE WITH EYES CLOSED, RESPIRATIONS EVEN AND UNLABORED. O2 AT 95% ON ROOM AIR. PT AWAKENS TO VOICE AND LIGHT TOUCH. PT REPORTS 6/10 PAIN AND DROWSINESS. SEE MAR FOR MEDICATION GIVEN. PT DENIES NASUEA. ASSESSMENT DONE. CMS INTACT. DRESSINGS C/D/I. STRENGTH RETURNED TO BLE BUT PT CONTINUES TO REPORT PAIN WITH MOVEMENT. I.S. USE DEMONSTRATED REACHING 1250ML. PT ASSISTED WITH PLACING BREAKFAST ORDER. PT PLAYING ON PHONE. NO ADDITIONAL REQUESTS OR COMPLAINTS AT THIS TIME. CALL LIGHT WITHIN REACH. FAMILY AT BEDSIDE.
--- NOTE | 2019-12-13 09:49 | NUR ---
THIS RN TO ROOM TO CHECK ON PT. PT FINISHED WITH BREAKFAST, WATCHING TV AND VISITING WITH SIGNIFICANT OTHER. EDUCATION DONE WITH PT REGARDING ANTIBIOTIC THERAPY, IMMUNOSUPPRESSION AND RHEUMATOID ARTHRITIS. PT STATES SHE DOES NOT HAVE A FOLLOW UP APPOINTMENT AT THIS TIME WITH HER RHEMATOLGIST BUT PLANS TO SCHEDULE ONE TO DISCUSS HER OPTIONS REGARDING RA THERAPY. PT REPORTS 0/10 PAIN AT THIS TIME. 7-UP PROVIDED PER PT REQUEST. NO ADDITIONAL REQUESTS OR COMPLAINTS AT THIS TIME. CALL LIGHT WITHIN REACH.
--- NOTE | 2019-12-13 11:39 | OR ---
[facility] [address], [place] [address] Signed DATE OF OPERATION: 12/11/2019 SURGEON: Chad Alan MD PREOPERATIVE DIAGNOSES: Bilateral knee effusions, history of rheumatoid arthritis, and questionable septic arthritis. POSTOPERATIVE DIAGNOSES: Bilateral knee effusions, history of rheumatoid arthritis, and questionable septic arthritis. PROCEDURE: Bilateral knee arthroscopies with synovectomy. ANESTHESIA: General. SPECIMENS: Consisted of fluid from each knee, sent for aerobic and anaerobic culture, Gram stain, cell count, and crystal analysis. WHAT WAS DONE: The patient was taken to the operating room. After anesthesia was induced and airway secured, the right lower extremity was positioned, prepped and draped in a routine sterile fashion. The leg was elevated, pneumatic tourniquet was inflated to 300 mmHg pressure. The outflow cannula was inserted superomedially and we got about 30 mL of slightly cloudy/murky fluid out of the knee. It was collected in a sterile syringe per the direction of the lab to be sent for cell count crystals, aerobic and anaerobic cultures, as well as Gram stain. We then inserted the arthroscope through the standard anterolateral portal. Diagnostic arthroscopy revealed a couple of small articular erosions in the medial femoral condyle, but otherwise dense synovitis. A large motorized shaver was introduced and synovectomy performed. The knee was then copiously irrigated and drained. The portals were closed and sterile dressing applied. The patient was then completely de-draped. All the instruments were removed. An entire new setup was brought into the room and the left leg was prepped and draped in a routine sterile fashion. Again, we exsanguinated the leg with elevation, inflated the pneumatic tourniquet to 300 mmHg pressure. The outflow cannula was inserted superolaterally and again, we recovered about 30 mL of murky fluid again. Again after we called the lab, we put it in a sterile syringe per the labs directions and sent off for aerobic and Electronically Signed By: CHAD ALAN MD 12/13/19 1139 PATIENT NAME: SHANIKA FOX OPERATIVE REPORT DATE OF : 87 REPORT #: [id number] PHYSICIAN: CHAD ALAN MD PCP: [facility] REPORT IS CONFIDENTIAL AND NOT TO BE RELEASED WITHOUT AUTHORIZATION [address] [address] Signed anaerobic cultures, Gram stain, as well as cell count and crystals. The arthroscope was then inserted through the standard anterolateral portal. Again, there was a rather dense synovitis. Large motorized shaver was introduced. Synovectomy was performed and the knee was copiously irrigated and drained. The portals were closed. A sterile dressing applied. The patient was awakened and taken to the recovery room where she arrived in stable condition. Counts were correct and antibiotic protocols were followed. MD JUANA CantuB/MODL /[id number] Copies: ~ Electronically Signed By: CHAD ALAN MD 12/13/19 1139 PATIENT NAME: DOMINIQUESHANIKA OPERATIVE REPORT DATE OF : 87 REPORT #: [id number] PHYSICIAN: CHAD ALAN MD PCP: [facility] REPORT IS CONFIDENTIAL AND NOT TO BE RELEASED WITHOUT AUTHORIZATION
--- NOTE | 2019-12-13 11:51 | NUR ---
NOON ASSESSMENT AND MEDICATION DUE. PT VISITING WITH FAMILY. PT REPORTS 4/10 PAIN AT THIS TIME. SEE MAR FOR MEDICATION GIVEN. ASSESSMENT DONE. CMS INTACT. DRESSINGS C/D/I. LUNG SOUNDS CLEAR. O2 AT 98% ON ROOM AIR. CPOX DC'D. PIV ASSESSED PENDING VANO INFUSION. FLUSHES BUT NO BLOOD RETURN NOTED. OPTION OF AN ADDITIONAL SMALLER GELY IV DISCUSSED WITH PT. PT REQUESTS A DIFFERENT IV FOR VANCO INFUSION, TO BE STARTED AFTER LUNCH. DR. ALAN TO BEDSIDE. PT INQUIRES ABOUT SHOWERING. ORDERS TO REMOVE DRESSING AND PT MAY SHOWER. DRESSING CAN BE REAPLIED IF PT DESIRES. MEDICAITON GIVEN. NO ADDITIONAL REQUESTS OR COMPLAINTS. CALL LIGHT WITHIN REACH. FAMILY AT BEDSIDE.
--- NOTE | 2019-12-13 13:04 | NUR ---
PT READY FOR SHOWER. SBA UP TO RESTROOM. PIV COVERED. PT REPORTS 0/10 PAIN. WANDY WRAP AND GAUZE DRESSINGS REMOVED. SUTURES IN PLACE, EDGES WELL APPROXIMATED, NO DRAINAGE NOTED AT THIS TIME. PT DEMONSTRATES USE OF CALL LIGHT. CALL LIGHT WITHIN REACH.
--- NOTE | 2019-12-13 13:32 | NUR ---
PT FINISHED WITH SHOWER. PT REPORT 0/10 PAIN IF NOT MOVING AND 3/10 PAIN WHILE WALKING. PT DENIES NEED FOR PAIN MEDICATIONS AT THIS TIME. 2ND PIV STARTED WITH 22G CATHETER IN RIGHT HAND FOR VANCO INFUSION. BRISK BLOOD RETURN NOTED. VITALS TAKEN. I/O RECORDED. PT TALKING ON PHONE. SCD'S IN PLACE. BANDAGES REMAIN OFF AT THIS TIME. WARM BLANKETS PROVIDED. NO ADDITIONAL REQUESTS OR COMPLAINTS AT THIS TIME. CALL LIGHT WITHIN REACH.
--- NOTE | 2019-12-13 14:38 | NUR ---
THIS RN TO ROOM TO CHECK ON PT. PT VISITING WITH FAMILY. PT REPORTS 4/10 PAIN. SEE MAR FOR MEDICATION GIVEN. EDUCATION DONE WITH PT AND FAMILY REGARDING INFECTION, RHEUMATOID ARTHRITIS, AND PENDING CULTURES. PT AND FAMILY STATE THEIR QUESTIONS HAVE BEEN ANSWERED. PT RESTING IN BED. NO ADDITIONAL REQUESTS OR COMPLAINTS. CALL LIGHT WITHIN REACH.
--- NOTE | 2019-12-13 16:08 | NUR ---
AFTERNOON ASSESSMENT AND MEDICATION DUE. THIS RN TO BEDSIDE. PT RESTING IN BED, PLAYING ON PHONE. PT REPORTS 2/10 PAIN AND STATES "MY KNEES ARE A LOT BETTER. LAST TIME I WENT TO THE BATHROOM I WAS ABLE TO TAKE FULL STRIDES INSTEAD OF SHUFFELING." ASSESSMENT DONE. EDEMA TO KNEES IMPROVIED. SITCHES INTACT, NO DRAINAGE NOTED. SCD'S IN PLACE. VANCO STARTED (SEE JAN). NO ADDITIONAL REQUESTS OR COMPLAINTS AT THIS TIME. CALL LIGHT WITHIN REACH.
--- NOTE | 2019-12-13 16:48 | NUR ---
PT POST OP DAY 1 FOR BILATERAL KNEE ARTHROSCOPIES. TOLERATING REGULAR DIET, SBA UP TO SHOWER AND RESTROOM. DRESSINGS REMOVED THIS SHIFT. SUTURES REMAIN IN PLACE, EDGES WELL APROXIMATED, NO DRAINAGE NOTED. IV ABX CONTINUES. NEW PIV IN RIGHT HAND. TRAMADOL PRN FOR PAIN. PAIN AND SWELLING IMPROVING. VOIDING QUANTITY SUFFICIENT. PT USES CALL LIGHT APPROPRAITLY.
--- NOTE | 2019-12-13 17:49 | NUR ---
PUMP ALARMING, INFUSION AND FLUSH COMPLETE. PIV ASSESED, WNL. BLOOD RETURN NOTED. MEDICATION GIVEN. PIV SALINE LOCKED. PT FINISHED WITH DINNER AND REQUESTS TIME TO REST. PT REPORTS 4/10 PAIN. NO ADDITIONAL REQUESTS OR COMPLAINTS AT THIS TIME. CALL LIGHT WITHIN REACH. BED RAILS UP.
--- NOTE | 2019-12-13 18:29 | NUR ---
THIS RN TO ROOM TO CHECK ON PT. PT EATING FAST FOOD BROUGHT IN BY FAMILY. PT REPORTS 2/10 PAIN AND DENIES NAUSEA. SCD'S REMOVED FOR "A BREAK." PT REPORTS SHE WAS UP TO RESTROOM INDPENDANTLY AND BACK TO BED. PT ADVISED TO FALL PRECAUTIONS. NO ADDITIONAL REQUESTS OR COMPLAINTS AT THIS TIME. CALL LIGHT WITHIN REACH.
--- NOTE | 2019-12-13 19:00 | NUR ---
SHIFT REPORT RECEIVED FROM DAYSHIFT NYDIA BRENNER AT BEDSIDE. PT AWAKE AND RESTING IN BED, RESPIRATION EVEN AND UNLABORED. NO DISTRESS NOTED, CALL LIGHT IN REACH. NO NEEDS VERBALIZED, BOARD UPDATED.
--- NOTE | 2019-12-13 19:00 | NUR ---
ROUNDED CHARGE. PATIENT IS RESTING IN BED. PATIENT DENIES ANY COMMENTS, QUESTIONS OR CONCERNS. NO NEEDS NOTED. CALL LIGHT IN REACH.
--- NOTE | 2019-12-13 21:11 | NUR ---
VITALS AND I&OS DONE AND CHARTED. FRESH ICE WATER GIVEN. GARBAGES EMPTIED. BEDSIDE TABLE AND CALL LIGHT IN REACH.
--- NOTE | 2019-12-13 21:21 | NUR ---
ASSESSMENT COMPLETE, SCHEDULED MEDS GIVEN (SEE EMAR). PT A/OX4, RATES PAIN 4/10 IN BILATERAL KNEES. PRN PAIN MEDICATION GIVEN (SEE EMAR). BILATERAL KNEES OPEN TO AIR, BANDAIDS X3 NOTED TO EACH KNEE, C/D/I. SCD'S OFF AT THIS TIME PER PT REQUEST. VSS, NO ADDITIOANL NEEDS. IV SITES X2 SALINE LOCKED, SITE WNL. CALL LIGHT IN REACH.
--- NOTE | 2019-12-13 23:08 | NUR ---
SCHEDULED IV VANCO INFUSING (SEE EMAR). PT DROWSY AWOKE BRIEFLY, DENIES PAIN WHEN FLUSHED. IV SITE WNL, FLUSHES EASILY. NO ADDITIOANL NEEDS, CALL LIGHT IN REACH.
--- NOTE | 2019-12-13 23:39 | NUR ---
IV VANCO INFUSING, SITE REMAINS WNL. CALL LIGHT IN REACH.
--- NOTE | 2019-12-14 00:02 | NUR ---
scheduled toradol given for 5/10 bilateral knee pain. iv vanco infusing, site wnl. call light in reach.
--- NOTE | 2019-12-14 00:51 | NUR ---
IV MIKE COMPLETE, SITE WNL. NO ADDITIONAL NEEDS, CALL LIGHT IN REACH.
--- NOTE | 2019-12-14 03:54 | NUR ---
PT RESTING IN BED WITH EYES CLOSED, RESPIRATIONS EVEN AND UNLABORED. NO DISTRESS NOTED, CALL LIGHT IN REACH.
--- NOTE | 2019-12-14 06:50 | NUR ---
VITALS AND I&OS DONE AND CHARTED. GARBAGES EMPTIED. APPLE JUICE GIVEN PER PT REQUEST. BEDSIDE TABLE AND CALL LIGHT IN REACH. PT NEEDS NOTHING MORE AT THIS TIME.
--- NOTE | 2019-12-14 06:50 | NUR ---
SCHEDULED TORADOL AND IV VANCO INFUSING (SEE EMAR). PT REPORTS 2/10 PAIN. NO NEW CHANGES OR CONCERNDS WITH ASSESSMENT. CALL LIGHT IN REACH.
--- NOTE | 2019-12-14 07:09 | NUR ---
REPORT RECEIVED FROM NYDIA RAMÍREZ. PT RESTING IN BED. REPORTS 2/10 PAIN AND DENIES NEED FOR PAIN MEDICAITON AT THIS TIME. INCISIONS C/D/I AT THIS TIME. NO DRAINAGE NOTED. NO ADDITIONAL REQUESTS OR COMPLAINTS. PT REQUESTS TO REST "FOR A BIT LONGER." CALL LIGHT WITHIN REACH.
--- NOTE | 2019-12-14 07:28 | NUR ---
MORNING ASSESSMENT AND MEDICATIONS DUE. PT RESTING IN BED WITH EYES CLOSED, AWAKENS TO MOVEMENT IN ROOM. PT REPORTS 2/10 PAIN AND STATES SHE WOULD LIKE HER PAIN MEDICATION NOW "SO THE IT DOESN'T GET WORSE." VANCO INFUSING. PIV ASSESSED, WNL. SWELLING TO BILATERAL KNEES IMPROVING. PT REPORTS SHE HAS BEEN ABLE TO "WALK ALMOST NORMALLY NOW." INCISION SITES COVERED WITH BANDAIDS, WNL, NO DRAINAGE NOTED. CMS INTACT. PT DECLINES SCD'S STATING "I CAN SLEEP BETTER WITH OUT THEM. PT ADVISED TO GET UP TO AMBULATE TODAY. PT AGREES "AFTER I REST A LITTLE MORE." NO ADDITIONAL REQUESTS OR COMPLAINTS. BREAKFAST ORDER PLACED FOR PT. NO ADDITIONAL REQUESTS OR COMPLAINTS AT THIS TIME. CALL LIGHT WITHIN REACH.
--- NOTE | 2019-12-14 08:46 | NUR ---
PUMP ALARMING, INFUSION AND FLUSH COMPLETE. PIV ASSESSED, PT REPORTS PAIN WITH FLUSHING. PIV IN R HAND DC'D PER PROTOCOL. GAUZE AND COBAN APPLIED. CEFTRIXONE STARTED IN PIV IN LEFT HAND, PIV ASSESSED, WNL, NO PAIN OR SWELLING NOTED. PT EATING BREAKFAST. PT REPORTS 2/10 PAIN IN KNEES AND DENIES NEED FOR ADDITIONAL PAIN MEDICAITON AT THIS TIME. CALL LIGHT WITHIN REACH. BED RAILS UP. NO ADDITIONAL REQUESTS OR COMPLAINTS.
--- NOTE | 2019-12-14 09:30 | NUR ---
Spoke with Sandra. She lives in [place] with her 3 children. Has been on bed rest for the last month due to pain and gross swelling her her needs. States history of rhuematoid arthrities and marco in her family. Her cousin stays with her when she needs help and her mother checks on her and assists her as much as needed. She does not have any DME at this time, but grandmother arrives and states she has a walker if needed. She has 3 children 6, 9, 13. Is concerned about her children and wants to dc home when able. Denies needs at this time to go home.
--- NOTE | 2019-12-14 10:33 | NUR ---
THIS RN TO ROOM WITH MD FOR ROUNDS. PT REPORTS 2/10 PAIN THAT IS TOLERABLE. PT DENIES NEED FOR ADDITIONAL PAIN MEDICATIONS AND REPORTS "FEELING A LOT BETTER THAN WHEN I CAME IN." PLAN MADE FOR ADDITONAL IV ABX AND MID LINE PLACEMENT. PT REPORTS AMBULATING WITH PHYSICAL THERAPY THIS MORNING WITHOUT A WALKER AND STATES IT "WENT PRETTY WELL." WITH LESS PAIN. VITALS TAKEN. I/O RECORDED. NO ADDITIONAL REQUESTS OR COMPLAINTS AT THIS TIME. CALL LIGHT WITHIN REACH.
--- NOTE | 2019-12-14 11:06 | NUR ---
PT RESTING ON R SIDE-ALERT AND ORIENTED. PT BEGAN TO EXPRESS TO ME HOW VERY DIFFICULT THE LAST FEW MONTHS HAVE BEEN ON HER AND HER FAMILY. SHE SAID SHE FEELS REALLY GUILTY THAT SHE IS MISSING HER DAUGHTER'S B.BALL GAME TODAY WELL THE OTHER CHILDREN SHE HAS. BEING DIAGNOSED WITH RA 3 MONTHS AGO LIFE HAS TAKING A DRASTIC TURN. COMING TO [facility] HAS MADE A BIG DIFFERENCE FOR HER OVERALL WELLBEING. SHA FEELS SHE HAS A BETTER UNDERSTANDING ON WHAT SHE NEEDS TO DO. PAIN IS MINIMAL. PT REQUESTED PRAYER, WILL FOLLOW NEEDED
--- NOTE | 2019-12-14 11:23 | NUR ---
NOON ASSESSSMENT AND MEDICATION DUE. EDUCATION DONE WITH PT REGARDING LOVENOX INJECTIONS. PT VERBALIZES UNDERSTANDING. PT REPORTS 2/10 PAIN AND DENIES NEED FOR PAIN MEDICATION AT THIS TIME. CMS INTACT. BANDAIDS C/D/I AT THIS TIME. NO DRAINAGE NOTED. PT UP TO RESTROOM, STEADY ON FEET. PT REPORTS THE PAIN IS "SO MUCH BETTER, I FEEL LIKE I CAN MOVE NOW." MID LINE PLACEMENT DISCUSSED WITH PT. PT VERBALIZES UNDERSTANDING AND IS ANTICIPATING MID LINE PLACEMENT. PT WATCHING TV. NO ADDITIONAL REQUESTS OR COMPLAINTS. CALL LIGHT WITHIN REACH.
--- NOTE | 2019-12-14 13:53 | NUR ---
THIS RN TO ROOM TO CHECK ON PT. PT RESTING IN BED. REPORTS AC IV ATTEMPT BY KYLEIGH RN WENT WELL, NO DISCOMFORT AT SITE. PT REPORTS 2/10 PAIN AND DECLINES PAIN MEDICAITON AT THIS TIME. PT UP TO VOID, STEADY ON FEET. GRANDMOTHER AT BEDSIDE. NO ADDITIONAL REQUESTS OR COMPLAINTS. CALL LIGHT WITHIN REACH.
--- NOTE | 2019-12-14 16:31 | NUR ---
AFTERNOON ASSESSMENT AND MEDICATION DUE. THIS RN TO BEDSIDE. PT VISITING WITH AUNT. PT REPORTS 4/10 PAIN AND REQUESTS PAIN MEDICATION (SEE MAR FOR MEDICATION GIVEN). ASSESSMENT DONE. CMS INTACT. INCISIONS C/D/I. PT HAS YET TO HAVE BOWEL MOVEMENT. PT ENCORUAGED TO AMBULATE TOLERATED AND FLUIDS ENCORUAGED. WATER REFILLED. PIVS ASSESSED. LEFT HAND PIV FLUSHES WELL. NO BLOOD RETURN. PIV IN LEFT AC HAS WONDERFUL BLOOD RETURN. PTS AUNT UPDATED PER PT REQUEST. AUNT (CACHORRO) USING THE WORD "FUCK" WITH THIS RN. THERAPUTIC COMMUNICATION DONE. APPROPRIATE LANGUAGE ENCORUAGE. PT WORKIGN ON PHONE. I.S. USE DEMONSTRATED REACH 1250ML. NO ADDITIONAL REQUESTS OR COMPLAINTS AT THIS TIME. CALL LIGHT WITHIN REACH.
--- NOTE | 2019-12-14 17:28 | NUR ---
PT HERE FOR RA EXACERBATION AND BILATERAL KNEE EFFUSIONS. PAIN AND SWELLING IMPROVED THIS SHIFT. PT TOLERATING REGULAR DIET. AMBULATION WITH PHYSICAL THERAPY, ENCORUAGE AMBULATION TOLERATED. IV ABX GIVEN. NEW PIV STARTED IN LEFT AC FOR VANCO INFUSIONS. PRN PAIN MEDICATION GIVEN FOR 2-4/10 PAIN THIS SHIFT. VOIDING QUANTITY SUFFICIENT. PT USES CALL LIGHT APPROPRIATLY.
--- NOTE | 2019-12-14 18:04 | NUR ---
PATIENT IN BED TALKING ON PHONE. PATIENT WAS CRYING BUT PATIENT SAID SHE WAS OKAY AND DIDNT NEED ANY THING WHEN ASKED. CALL LIGHT IN REACH. NO FURTHER NEEDS AT THIS TIME.
--- NOTE | 2019-12-14 18:26 | NUR ---
MIKE ARRIVED FROM [place] HOME ORDERED. PIV ASSESSED, BLOOD RETURN NOTED. PT TEARFUL, STATING HER FATHER IS NOT SUPPORTING HER. THERAPUTIC COMMUNICATION AND SUPPORT PROVIDED. GREEN TEA PROVIDED PER PT REQUEST FOR COMFORT. CALL LIGHT WITHIN REACH.
--- NOTE | 2019-12-14 19:28 | NUR ---
RECEIVED REPORT FROM DAY SHIFT RN. PATIENT IS RESTING IN BED VISITING WITH HER CHILDREN. NO NEEDS NOTED. PATIENT DENIES ANY PAIN AT THIS TIME. CALL LIGHT IN REACH.
--- NOTE | 2019-12-14 20:29 | NUR ---
PATIENT ASSESEMENT COMPLETED. PATIENT RATES PAIN AT A 2/10 IN HER BILAT KNEES. PATIENT GIVEN SCHEDULED TYLENOL PER ORDER. PATIENTS EVENING MEDICAITONS GIVEN PER ORDER. PATIENTS IV COVERED AND PATIENT PROVIDED WITH TOWELS TO SHOWER. PATIENTS BEDDING CHANGED AND FRESH LINEN PROVIDED. PATIENT DENIES ANY FURTHER NEEDS. CALL LIGHT IN REACH.
--- NOTE | 2019-12-14 22:11 | NUR ---
PATIENT IS RESTING IN BED WATCHING TV. PATIENT GIVEN PRN PAIN MEDICATION FOR 3/10 PAIN IN HER BILAT KNEES. PATIENTS SO IS IN THE ROOM. PATIENTS ICE WATER REFILLED. NO FURTHER NEEDS NOTED. CALL LIGHT IN REACH.
--- NOTE | 2019-12-14 23:00 | NUR ---
PATIENT IS RESTING IN BED WATCHING TV. PATIENT DENIES ANY NEEDS. CALL LIGHT IN REACH.
--- NOTE | 2019-12-15 00:35 | NUR ---
PATIENT IS RESTING IN BED WITH EYES CLOSED, RR 16. CALL LIGHT IN REACH. S/O ASLEEP ON THE COUCH.
--- NOTE | 2019-12-15 02:21 | NUR ---
PATIENTS SCHEDULED MEDICATIONS GIVEN PER ORDER. PATIENT IS RESTING IN BED. PATIENT DENIES ANY NEEDS AT THIS TIME. CALL LIGHT IN REACH. EDUCATED PATIENT ON S/SX OF IV INFILTRATION. PATIENT VERBALIZED UNDERSTANDING.
--- NOTE | 2019-12-15 03:32 | NUR ---
IV ABX IS HAS COMPLETED INFUSING. PATIENT IS NOW SL PER ORDER. PATIENT RATES PAIN AT A 3/10. PATIENT GIVEN PRN PAIN MEDICATION PER ORDER. PATIENT DENIES ANY FURTHER NEEDS. CALL LIGHT IN REACH.
--- NOTE | 2019-12-15 04:19 | NUR ---
PATIENT RESTED WELL THROUGHOUT THE SHIFT. PATIENT IS ON A REGULAR DIET AND TOLERATING IT WELL. PATIENT IS RA. PATIENT IS INDEPENDENT IN THE ROOM. PATIENT IS SL X2 AND BOTH IVS FLUSH WELL. PATIENT RECEIVED PRN PAIN MEDICATION FOR PAIN IN HER BILAT KNEES. PATIENT IS AAOX4. PATIENT HAS SCDS IN USE WHILE IN BED.
--- NOTE | 2019-12-15 06:34 | NUR ---
PATIENTS VITALS TAKEN AND RECORDED. INTAKE AND OUPUT RECORDED. PATIENT DENIES ANY PAIN. NO NEEDS NOTED. CALL LIGHT IN REACH.
--- NOTE | 2019-12-15 07:26 | NUR ---
REPORT RECEIVED FROM NYDIA DICKERSON. PT SLEEPING.
--- NOTE | 2019-12-15 09:10 | NUR ---
PT DISCONNECTED FROM IVF UNTIL VANCO IS READY. PT UP TO RESTROOM. CALLED DOWN TO SEE IF BREAKFAST WAS READY YET. THEY STATED IT WOULD BE UP SHORTLY.
--- NOTE | 2019-12-15 10:22 | NUR ---
WOKE PT FOR VANCO INFUSION. FLUSHED WELL. PT STATES HER IV FEELS FINE.
--- NOTE | 2019-12-15 12:53 | NUR ---
PT HAS BEEN UP AND AMBULATING WITH P.T. PT SAID SHE SLEPT BETTER AND HER KNEES SEEM TO BE RESPONDING TO TREATMENT. PT STILL FEELS GUILTY SHE IS AWAY FROM HER KIDS, BUT HOPES TO DC SOON. GAVE WAI, WILL FOLLOW NEEDED
--- NOTE | 2019-12-15 13:15 | NUR ---
Briefly spoke with Sandra. Plans on staying until Saturday to finish antibiotics. Denies needs at this time form dc planning.
--- NOTE | 2019-12-15 14:24 | NUR ---
PATIENT SITTING UP IN BED, VISITOR IN ROOM. FRESH WATER GIVEN. PATIENT WANTS TO SHOWER THIS EVNING. CALL LIGHT IN REACH. NO FURTHER NEEDS AT THIS TIME.
--- NOTE | 2019-12-15 14:34 | NUR ---
PT STATES SHE WOULD LIKE MORE INFORMATION ON RA, (PACKET GIVEN) AND REVIEWED. ALSO GAVE INFORMATION ABOUT KNEE EFFUSIONS, PACKET AND REVIEW GIVEN PT STATES UNDERSTANDING OF THIS. DENIES FURTHER QUESTIONS.
--- NOTE | 2019-12-15 17:18 | NUR ---
PT SITTING UP IN BED WATCHING TV. STATES THAT SHE IS FEELING PRETTY GOOD AND DENIES NEEDING PAIN MEDS OR ANYTHING ELSE. STATES IT IS ONLY HER RIGHT KNEE NOW.
--- NOTE | 2019-12-15 18:22 | NUR ---
PATIENT IN BED RESTING. CALL LIGHT IN REACH. NO FURTHER NEEDS AT THIS TIME.
--- NOTE | 2019-12-15 19:29 | NUR ---
IN ROOM FOR REPORT, PT REPORTS HER IV IS LEAKING. DAY NYDIA BARNETT DC'D IV D/T INFILTRATION, CATH TIP INTACT AND PT TOLERATED WELL. PT DENIES FURTHER NEEDS AT THIS TIME AND RN [employer] WILL BE CALLED TO START NEW IV PT IS HARD IV START.
--- NOTE | 2019-12-15 21:54 | NUR ---
IN ROOM TO ADMINISTER MEDICATIONS AND ASSESS PT. SHE REPORTS PAIN AT 4/10, ADMINISTERED ULTRAM AND TYLENOL. BANDAIDS COVERING INCISIONS ARE CDI, PT REPORTS SORENESS ON R KNEE MORE THAN LEFT AND ITCHING AT INCISION SITES. ADMINISTERED BENADRYL FOR ITCHING. FRESH ICE PROVIDED AND SHE DENIES FURTHER NEEDS AT THIS TIME. CALL LIGHT IS CLOSE.
--- NOTE | 2019-12-15 23:45 | NUR ---
PT IS RESTING WITH EYES CLOSED, RR IS EVEN AND NONLABORED. CALL LIGHT IS CLOSE. IV IS SL.
--- NOTE | 2019-12-16 01:46 | NUR ---
PT IS RESTING WITH EYES CLOSED, RR IS EVEN AND NONLABORED. CALL LIGHT IS CLOSE.
--- NOTE | 2019-12-16 02:52 | NUR ---
Patient has been resting . call light in reach and fresh water was given.
--- NOTE | 2019-12-16 03:35 | NUR ---
PT IS RESTING WITH EYES CLOSED, RR IS EVEN AND NONLABORED. CALL LIGHT IS CLOSE.
--- NOTE | 2019-12-16 05:30 | NUR ---
IV ABX INFUSING. PT IS COMFORTABLE AT THIS TIME NOT REQUIRING PAIN MEDICINE. CALL LIGHT IS CLOSE AND IV IS INFUSING FINE. VS TAKEN AND ENTERED WITH HELP OF JYOTI BERNSTEIN.
--- NOTE | 2019-12-16 07:05 | NUR ---
RESTING SUPINE IN BED, EYES CLOSED AND RESPIRATIONS EVEN AND UNLABORED. CALL LIGHT AND H2O IN REACH. REPORT RECEIVED FROM NYDIA ALVARADO.
--- NOTE | 2019-12-16 08:17 | NUR ---
PT RESTING SUPINE IN BED. PT ALERT AND ORIENTED. CALL LIGHT AND H2O IN REACH. PT ASSESSMENT COMPLETED. AM MEDS ADMINISTERED. PT STATES SHES COMFORTABLE AT THIS TIME AND DENIES ANY NUMBNESS, TINGLING OR BURNING OR ANY OTHER SYMPTOMS.
--- NOTE | 2019-12-16 09:00 | NUR ---
Spoke with meredith Flores. She feels she is doing ok. Plans on staying through Saturday for IV antibiotics. Denies needs.
--- NOTE | 2019-12-16 10:54 | NUR ---
PATIENT IN BED RESTING WITH EYES CLOSED. NO I&O, RN NOTIFIED. CALL LIGHT IN REACH. NO FURTHER NEEDS AT THIS TIME.
--- NOTE | 2019-12-16 12:26 | NUR ---
PT RESTING SUPINE IN BED PT ALERT AND ORIENTED. PT STATES SHE TOELRATED AMBULATING WITH STEADY GAIT INDEPENDANTLY IN ROOM AND DID TWO LAPS IN BARBER WITHOUT DIFFICULTY. CALL LIGHT AND FRESH H2O IN REACH. PT TOLERATED 100% OF HER LUNCH.
--- NOTE | 2019-12-16 14:24 | NUR ---
PT RESTING SUPINE IN BED. PT ALERT AND ORIENTED. PT ASSESSMENT COMPLETED. PT REPORTS 4/10 ACHING PAIN TO BILAT KNEES. CMS INTACT DISTALLY. PEDAL PULSES +2. CALL LIGHT AND H2O IN REACH. NO FURTHER NEEDS OR CONCERNS VOICED.
--- NOTE | 2019-12-16 15:00 | NUR ---
PATIENT SITTING UP IN BED WATCHING TV. CALL LIGHT IN REACH. NO FURTHER NEEDS AT THIS TIME.
--- NOTE | 2019-12-16 17:37 | NUR ---
Pt tolerated dinner well, sprite soda provided per pt request. Pt reports 4/10 pain to bilat knees. Prn analgesic administered po. Call light and h2o in reach.
--- NOTE | 2019-12-16 19:03 | NUR ---
IN ROOM FOR REPORT, PT IS AWAKE IN BED. SHE DENIES NEEDS AT THIS TIME. CALL LIGHT IS CLOSE.
--- NOTE | 2019-12-16 20:59 | NUR ---
IN ROOM TO ADMINISTER MEDICATIONS AND ASSESS PT. SHE RATES PAIN IN KNEES AT 3/10 AT THIS TIME AND TOLERABLE. SCHEDULED TYLENOL ADMINISTERED AND PT REFUSED MILK OF MAGNESIA. SHE REPORTS SHE AMBULATES OFTEN. FRESH ICE BAG GIVEN AND FRESH WATER. PT DENIES FURTHER NEEDS AT THIS TIME. CALL LIGHT IS WITHIN REACH.
--- NOTE | 2019-12-16 21:24 | NUR ---
VITALS AND I&OS DONE AND CHARTED. BEDSIDE TABLE AND CALL LIGHT IN REACH.
--- NOTE | 2019-12-16 21:35 | NUR ---
WAS NOTIFIED BY [employer] PHYSICAL INSTRUCTOR THAT PT'S IV WAS CAUSING HER PAIN. ASSESSED IV SITE AND IT IS INFILTRATED. STOPED IV INFUSION AND DC'D IV. CATH TIP INTACT AND PT TOLERATED WELL. GAUZE AND COBAN APPLIED WITH PRESSURE. PT DENIES NEEDS AT THIS TIME. CALLED RN TROUBLE OPERATOR TO START ANOTHER IV.
--- NOTE | 2019-12-16 23:48 | NUR ---
WOKE PT TO ADMINISTER ULTRAM PER PT REQUEST. SHE DENIES FURTHER NEEDS AT THIS TIME. CALL LIGHT IS CLOSE.
--- NOTE | 2019-12-17 02:00 | NUR ---
PT IS RESTING WITH EYES CLOSED, RR IS EVEN AND NONLABORED. CALL LIGHT IS CLOSE.
--- NOTE | 2019-12-17 04:02 | NUR ---
PT IS RESTING WITH EYES CLOSED, RR ARE EVEN AND NONLABORED. CALL LIGHT IS CLOSE.
--- NOTE | 2019-12-17 06:23 | NUR ---
VITALS AND I&OS DONE AND CHARTED. FRESH ICE WATER AND HOT TEA GIVEN PER PT REQUEST. GARBAGES EMPTIED. BEDSIDE TABLE AND CALL LIGHT IN REACH.
--- NOTE | 2019-12-17 07:04 | NUR ---
PT RESTING SUPINE IN BED, EYES CLOSED AND RESPIRATIONS EVEN AND UNLABORED. PT APPEARS TO BE SLEEPING COMFORTABLY. CALL LIGHT AND H2O IN REACH. REPORT RECEIVED FROM NYDIA ALVARADO.
--- NOTE | 2019-12-17 09:00 | NUR ---
Spoke with Sandra. Cont. to plan for dc tomorrow when antibiotics are compelte. Denies needs for dc.
--- NOTE | 2019-12-17 09:06 | NUR ---
CALL TO DR. MADDEN THAT PATIENT IV WENT BAD AGAIN. CALL TO KYLEIGH IN PACU REGARDING RESTARTING IV WITH ULTRASOUND SO PATIENT CAN HAVE IV ABX FOR THE NEXT 24 HOURS.
--- NOTE | 2019-12-17 09:16 | NUR ---
PT RESTING SUPINE IN BED PT LAERT AND ORIENTED. CALL LIGHT AND H2O IN REACH. ASSESSMENT COMPLETED. LEFT KNEE SLIGHTLY SWOLLEN. PT STATES PAIN IS TOLERABLE AND ICE PACK APPLIED. BANDAIDS CDI TO BILAT KNEES.
--- NOTE | 2019-12-17 11:13 | NUR ---
PT RESTING IN BED WATCHING TV. ENCOURAGED PT TO AMBULATE BUT PT REFUSED. STATES "MY LEFT KNEE HURTS ITS THROBBING 5/10 PAIN. MY RIGHT KNEE IS FINE. IT HURTS WORSE WHEN I MOVE IT". CMS INTACT TO BILAT FEET. PRN PO TRAMADOL ADMINISTERED PER PT REQUEST. CALL LIGHT AND H2O IN REACH. NO OTHER NEEDS VOICED. ICE APPLIED TO LEFT KNEE.
--- NOTE | 2019-12-17 13:27 | NUR ---
PATIENT HAS A VISITOR. I WILL ASK HER AGAIN IF SHE WOULD LIKE TO TAKE A SHOWER.
--- NOTE | 2019-12-17 13:44 | NUR ---
PT RESTING ON R SIDE, AROUSED TO MY VOICE. LUNCH WAS SITTING ON TABLE UNEATEN. PT SAID SHE WAS TOO TIRED TO EAT-JUST WANTED TO REST. PT MENTIONED HER KIDS ARE COMING UP FOR A VISIT TODAY AFTER SCHOOL. GAVE A BLESSING, WILL FOLLOW NEEDED
--- NOTE | 2019-12-17 14:32 | NUR ---
PT RESTING IN SEMIFOWLERS POSITION WATCHING TV. PT REPORTS THROBBING ACHING PAIN TO LEFT KNEE, SOME 2+ NONPITTING EDEMA NOTED TO LEFT KNEE. NO REDNESS OR WARMTH NOTED. PT ASSESSMENT COMPLETED. COFFEE AND ICE PACK APPLIED PER PT REQUEST. NO FURTHER NEEDS OR CONCERNS VOICED. CALL LIGHT AND H2O IN REACH. DR MADDEN WAS INTO SEE PATIENT. PER PT REQUEST WILL CONTACT DR ALAN REGARDING RECOMMENDED DATE TO HAVE PT FOLLOW UP FOR SUTURE REMOVAL.
[2019-12-17] MEDS ORDERED: METHOTREXATE2.5 MG PO (14:33)
[2019-12-17] MEDS ORDERED: DICLOFENAC SODI50 MG PO (14:35)
[2019-12-17] MEDS ORDERED: TRAMADOL HCL50 MG PO (14:35)
[2019-12-17] MEDS ORDERED: NICORETTE4 M2 BUCCAL (14:35)
[2019-12-17] MEDS ORDERED: DOXYCYCLINE MO100 M1 PO (14:35)
--- NOTE | 2019-12-17 15:59 | NUR ---
PT RESTING SUPINE IN BED ALERT AND ORIENTED. CALL LIGHT AND H2O IN REACH. PT DENIES NEEDS OR CONCERNS. PT STATES PAIN IS NOW TOLERABLE TO LEFT KNEE. ICE PACK APPLIED TO LEFT KNEE. CMS INTACT TO BILAT LE'S. CALL LIGHT AND H2O IN REACH. PT DECLINES TO GO ON A WALK AT THIS TIME BUT AGREES TO USE CALL LIGHT WHEN SHE FEELS READY FOR A WALK.
--- NOTE | 2019-12-17 17:25 | NUR ---
PT SITTING UP IN BED EATING DINNER. ENCOURAGED PT TO AMBULATE ONCE FINISHED WITH MEAL. CALL LIGHT AND H2O IN REACH.
--- NOTE | 2019-12-17 18:39 | NUR ---
PT APPEARED TO HAVE A GOOD DAY OVER ALL. PT AMBULATING INDEPENDANTLY IN ROOM WITH STEADY GAIT WHEN SL'D AND CALLS APPROPRIATLEY. PT HAS DECLINED AMBULATION IN HALLS TODAY. PT WAS EDUCATED ON IMPORTANCE OF AMBULATING AND CONTINUES TO DECLINE. PRN DICLOFENAC ADMINISTERED AT 1430 PER PT REPORT OF INCREASED PAIN TO LEFT KNEE. PT HAS HAD SOME 2+ NON PITTING EDEMA TO LEFT KNEE. NO REDNESS TO KNEES AND BANDAIDS REMAIN CDI TO BILAT KNEES. CMS INTACT TO BILAT LE'S. ICE PRN FOR PT COMFORT TO KNEES. PT HAS HAD GOOD APPETITE AND IS VQS. PT HAS NEW US GUIDED IV TO LEFT UPPER ARM WHICH REMAINS PATENT.
--- NOTE | 2019-12-17 20:01 | NUR ---
Incontinent of liquid bm abd urine. very red joe area, under pannus and axillary area, barrier cream applied. Cooperative with assessment. On O2 2LNC, lungs with exp wheezing t/o. moist cough present. Call light and fluids at bedside.
--- NOTE | 2019-12-17 21:31 | NUR ---
Repositions self in bed. Coop with assessment. On room air. TKO IVf infusing w/o problems. Vancomysin infusing. c/o 02/25 bilat knees pain. 3 band aid in each knee area in place. L knee 1+ edema, tender to touch. Medicated with Ultram 50mg. Uasinf call light appropritately, fluids at bedside.
--- NOTE | 2019-12-18 01:23 | NUR ---
RESTING, EYES CLOSED, ICE TO BOTH KNEES, IV ABX INFUSING, NO C/O PAIN, NO RESP DISTRESS, FLUIDS AND CALL LIGHT AT BEDSIDE
--- NOTE | 2019-12-18 03:10 | NUR ---
RSTING, EYES CLOSED, NO RESP DISTRESS, CALL LIGHT AND FLUIDS AT BEDSIDE, DECLINES SDCS, ICE TO BILAT KNEES, NO FURTHER C/O PAIN
--- NOTE | 2019-12-18 05:14 | NUR ---
awakens easily, c/o 4-5/10 l knee pain. Medicated with Voltaren 50mg po. Up to BR, voided, back to bed, tolerated well. IV Vancomycin infusing w/o problems
--- NOTE | 2019-12-18 05:19 | NUR ---
PT HAS SLEPT THIS SHIFT. ON ROOM AIR. HAS BEEN MEDICATED WITH VOLTAREN AND ULTRAM PER BILAT KNEES PAIN, EFFECTIVE WITH PAIN RELIEF. L KNEE SLIGHTLY MORE EDEMATOUS THATN R. 3 BANDAIDS OVER DRAINAGE SITES. DRY. GOOD CMS. INDEPENDENT IN ROOM, HAS VOIDED QS, STATED SHE HAD A BM YESTERDAY AM SHIFT, DECLINED MOM. MED INSTRUCTIONS THAT NARCOTICS CAN CAUSE CONSTIPATION GIVE, VERBALLY, STATED AWARENESS. TOLERATING DIET WELL. ICE TO BILAT KNEES, PT REPOSITIONS SELF IN BED. NO C/O ADVERSE REACTION TO IV VANCOMYCIN. FLUIDS AND CALL LIGHT AT BEDSIDE. AFEBRILE. PT IS TO BE DC HOME, POST OP DC CARE INSTRUCTED TO PT. RECEPTIVE TO TEACHING. GOES BACK TO SLEEP.
--- NOTE | 2019-12-18 07:31 | NUR ---
RECIEVED REPORT FROM NYDIA ABREU. PT IS INDEPENDENT IN ROOM. DC ORDERS ARE IN, WILL COMPLETE ABX FIRST.
== END 2019-12-18 09:50 | disposition home or self-care (01) | DRG 487 ==
LOC: ED 12:44 → MS 12:46
PROVIDERS: ADMIT Internal Medicine
PROC: 0SBD4ZZ Excision of Left Knee Joint, Percutaneous Endoscopic Approach (ICD-10-PCS; principal; 2019-12-11)
PROC: 0SBC4ZZ Excision of Right Knee Joint, Percutaneous Endoscopic Approach (ICD-10-PCS; 2019-12-11)
PROC: 0S9D3ZZ Drainage of Left Knee Joint, Percutaneous Approach (ICD-10-PCS; 2019-12-11)
PROC: 3E0U33Z Introduction of Anti-inflammatory into Joints, Percutaneous Approach (ICD-10-PCS; 2019-12-11)
DX: M00.9 Pyogenic arthritis, unspecified (principal); M06.9 Rheumatoid arthritis, unspecified; F17.200 Nicotine dependence, unspecified, uncomplicated; Z79.899 Other long term (current) drug therapy; Z79.52 Long term (current) use of systemic steroids
CPT/HCPCS: 01400; 20610; 36415; 80048; 80202; 82945; 84157; 85025; 85032; 87070; 87075; 87205; 89051; 89060; 96365; 96366; 96367; 96376; 97110; 97116; 97162; 97165; 99284-25; 99406; G0378; J0696; J1100; J1200; J1650; J1885; J2250; J2274; J2405; J3010; J3370; J7060; J7121; J7512

== ENCOUNTER 2022-09-04 06:10 | Inpatient (IN) | payer OTHER ==
[~2022-09-04] VITALS: Ht 162.6 cm; Wt 74.8 kg
[~2022-09-04 06:10] MED LIST changes: +DICLOFENAC SODI50 MG PO; +DOXYCYCLINE MO100 M1 PO; +NICORETTE4 M2 BUCCAL; +PREDNISONE10 MG PO; +TRAMADOL HCL50 MG PO
--- NOTE | 2022-09-04 12:26 | PR ---
[facility] [address] [facility] [place] [facility] [place], [place] [address] Signed Progress Notes IP Datetime Report Generated by CPN: 09/04/2022 12:26 PROGRESS NOTES: [id number] Impression: Normal Progression of Labor; Reassuring Heart Rate Procedures: Artificial ROM; Sterile Vag Exam Plan: Continue Present Management VITAL SIGNS: [id number] EXAM: [id number] Dilatation: 4.0 Effacement: 75 Station: -2 MEMBRANES: [id number] Comments: Comfortable after epidural. Will continue. FETUS A: [id number] FETUS B: [id number] Signing Physician: Josee Kirkpatrick MD Copies: ~ *Electronically Signed* 09/04/22 1226 JOSEE KIRKPATRICK MD PATIENT NAME: SHANIKA FOX PROGRESS NOTE DATE OF : 87 PHYSICIAN: JOSEE KIRKPATRICK MD RPT #: [id number] REPORT IS CONFIDENTIAL AND NOT TO BE RELEASED WITHOUT AUTHORIZATION
--- NOTE | 2022-09-04 17:45 | PR ---
[facility] [address] [facility] [place] [address] Signed Progress Notes IP Datetime Report Generated by CPN: 09/04/2022 17:45 PROGRESS NOTES: [id number] Impression: Reassuring Heart Rate Procedures: Sterile Vag Exam Plan: Augmentation VITAL SIGNS: [id number] EXAM: [id number] Dilatation: 4.0 Effacement: 75 Station: -2 MEMBRANES: [id number] Comments: Comfortable. She has made minimal progress. I feel contractions are inadequate. Will augment with low dose pit. FETUS A: [id number] FETUS B: [id number] Signing Physician: Josee Kirkpatrick MD Copies: ~ *Electronically Signed* 09/04/22 1745 JOSEE KIRKPATRICK MD PATIENT NAME: SHANIKA FOX PROGRESS NOTE DATE OF : 87 PHYSICIAN: JOSEE KIRKPATRICK MD RPT #: [id number] REPORT IS CONFIDENTIAL AND NOT TO BE RELEASED WITHOUT AUTHORIZATION
--- NOTE | 2022-09-04 19:32 | PR ---
[facility] [address] [facility] [place], [place] [address] Signed Progress Notes IP Datetime Report Generated by CPN: 09/04/2022 19:31 PROGRESS NOTES: [id number] Impression: Reassuring Heart Rate Procedures: Sterile Vag Exam Plan: Continue Present Management VITAL SIGNS: [id number] EXAM: [id number] Dilatation: 4.0 Effacement: 75 Station: -2 MEMBRANES: [id number] Comments: No progress. Will continue augmentation. FETUS A: [id number] FETUS B: [id number] Signing Physician: Josee Kirkpatrick MD Copies: ~ *Electronically Signed* 09/04/221930 JOSEE KIRKPATRICK MD PATIENT NAME: SHANIKA FOX PROGRESS NOTE DATE OF : 87 PHYSICIAN: JOSEE KIRKPATRICK MD RPT #: [id number] REPORT IS CONFIDENTIAL AND NOT TO BE RELEASED WITHOUT AUTHORIZATION
--- NOTE | 2022-09-05 08:19 | PR ---
[facility] [address] [facility] [place], [place] [address] Signed PP Progress Notes Datetime Report Generated by CPN: 09/05/2022 08:18 SUBJECTIVE: [id number] Pain: Within Normal Limits Pain Comments: back pain Vital Signs: [id number] Vital Signs: Reviewed; Within Normal Limits Cardiovascular: Not Done Respiratory: Not Done Abdomen/Uterus: Abnormal Lochia: Normal Vulva/Perineum: Not Done Extremities: Normal Incision: Not Applicable Progress: Normal Exam Comments: Fundus firm, NT @ U-1. H/H 8.1/25.3, WBC 20.8, plat 253k IMPRESSION/PLAN/PROCEDURES: [id number] Impression: Normal Progression Other Plans: Continue buprenorphine Progress Notes: Doing OK Pt states she had confessed previously to ongoing fentanyl use though I do not have this in the records. She also reports being on buprenorphine for the last 6 months though all previous drug tests were only positive for meth until yesterday. Anemia--little worse pp but well tolerated Signing Physician: Josee Kirkpatrick MD Copies: ~ *Electronically Signed* 09/05/22817 JOSEE KIRKPATRICK MD PATIENT NAME: SHANIKA FOX PROGRESS NOTE DATE OF : 87 PHYSICIAN: JOSEE KIRKPATRICK MD RPT #: [id number] REPORT IS CONFIDENTIAL AND NOT TO BE RELEASED WITHOUT AUTHORIZATION
--- NOTE | 2022-09-06 08:09 | PR ---
[facility] [address] [facility] [place], [place] [address] Signed PP Progress Notes Datetime Report Generated by CPN: 09/06/2022 08:09 SUBJECTIVE: [id number] Pain: Within Normal Limits Pain Comments: back pain Vital Signs: [id number] Vital Signs: Reviewed; Within Normal Limits Cardiovascular: Not Done Respiratory: Not Done Abdomen/Uterus: Abnormal Lochia: Normal Vulva/Perineum: Not Done Breasts: Not Done CVA Tenderness: Not Done Extremities: Normal Incision: Not Applicable Progress: Normal Exam Comments: Fundus firm, NT @ U-1. IMPRESSION/PLAN/PROCEDURES: [id number] Impression: Normal Progression Plan: Discharge Other Plans: Continue buprenorphine Procedures: Rubella Progress Notes: Doing well. She is OK for discharge to [facility]. Explained I cannot prescribe buprenorphine and this will need to be picked up from her prescriber. She is planning on going into treatment with the baby as soon as baby is discharged and will be going to [place]. Signing Physician: Josee Kirkpatrick MD Copies: ~ *Electronically Signed* 09/06/22808 JOSEE KIRKPATRICK MD PATIENT NAME: SHANIKA FOX PROGRESS NOTE DATE OF : 87 PHYSICIAN: JOSEE KIRKPATRICK MD RPT #: [id number] REPORT IS CONFIDENTIAL AND NOT TO BE RELEASED WITHOUT AUTHORIZATION
== END 2022-09-06 09:25 | disposition home or self-care (01) | DRG 805 ==
LOC: FBC 06:10
PROVIDERS: ADMIT Obstetrics & Gynecology; ATTEND Obstetrics & Gynecology
PROC: 10E0XZZ Delivery of Products of Conception, External Approach (ICD-10-PCS; principal; 2022-09-04)
PROC: 10907ZC Drainage of Amniotic Fluid, Therapeutic from Products of Conception, Via Natural or Artificial Opening (ICD-10-PCS; 2022-09-04)
PROC: 00HU33Z Insertion of Infusion Device into Spinal Canal, Percutaneous Approach (ICD-10-PCS; 2022-09-04)
PROC: 3E0R3BZ Introduction of Anesthetic Agent into Spinal Canal, Percutaneous Approach (ICD-10-PCS; 2022-09-04)
DX: O26.62 Liver and biliary tract disorders in childbirth (principal); K83.1 Obstruction of bile duct; Z37.0 Single live birth; O99.324 Drug use complicating childbirth; Z20.822 Contact with and (suspected) exposure to COVID-19; F15.90 Other stimulant use, unspecified, uncomplicated; F11.90 Opioid use, unspecified, uncomplicated; Z3A.38 38 weeks gestation of pregnancy; O99.824 Streptococcus B carrier state complicating childbirth; O99.334 Smoking (tobacco) complicating childbirth; F17.210 Nicotine dependence, cigarettes, uncomplicated; Z67.40 Type O blood, Rh positive; F12.90 Cannabis use, unspecified, uncomplicated; O99.03 Anemia complicating the puerperium; D64.9 Anemia, unspecified
CPT/HCPCS: 01960; 36415; 85027; 85060; 86850; 86900; 86901; 87502; 90707; A9270; C9803; J2405; J2540; J2590; J2795; J3010; U0003

== ENCOUNTER 2023-01-13 08:46 | Emergency (ER) | payer OTHER ==
[~2023-01-13] VITALS: Ht 152.4 cm; Wt 82.0 kg
--- OUTSIDE RECORDS SUMMARY | 2023-01-13 08:49 | XMS ---
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 PHONE: [phone] Nora has no Care Guidelines for this patient. Care History Medical/Surgical 12/14/2019 [facility] \T\middot;\T\nbsp; PATIENT- [facility] ELIGIBLE \T\middot;\T\nbsp; PLEASE REFER PATIENT TO [facility] FOR NON EMERGENT MEDICAL NEEDS. \T\middot;\ T\nbsp; [facility] CAN SEE PATIENTS SAME DAY FOR APTS IF PATIENT CALLS FIRST THING IN THE MORNING. E.D. VISIT COUNT (12 MO.) [address] [place] [address] TOTAL 1 NOTE: Visits indicate total known visits. ED/UCC VISIT TRACKING (12 MO.) 01/13/2023 08:46 [facility] [place] TYPE: Emergency COMPLAINT: - SWELLING/BODY PART INPATIENT VISIT TRACKING (12 MO.) 09/04/2022 06:10 [facility] [place] [facility] COMPLAINT: - INDUCTION DIAGNOSES: - Anemia, unspecified - Single live - Streptococcus B carrier state complicating childbirth - Smoking (tobacco) complicating childbirth - Type O blood, Rh positive - Other stimulant use, unspecified, uncomplicated - Obstruction of bile duct - Contact with and (suspected) exposure to COVID-19 - Cannabis use, unspecified, uncomplicated - Anemia complicating the puerperium - Contact with and (suspected) exposure to COVID-19 - 38 weeks gestation of - Nicotine dependence, cigarettes, uncomplicated - Anemia complicating the puerperium - Cannabis use, unspecified, uncomplicated - Nicotine dependence, cigarettes, uncomplicated - Drug use complicating childbirth - Drug use complicating childbirth - Opioid use, unspecified, uncomplicated - Liver and biliary tract disorders in childbirth - Smoking (tobacco) complicating childbirth - Single live - 38 weeks gestation of - Opioid use, unspecified, uncomplicated - Type O blood, Rh positive - Anemia, unspecified - Obstruction of bile duct - Streptococcus B carrier state complicating childbirth - Other stimulant use, unspecified, uncomplicated [email or web address]
[2023-01-13] MEDS ORDERED: BUPRENORPHINE HC8 MG SL (09:02)
[2023-01-13] MEDS ORDERED: ACTEMRA AC162 MG/0.9 (09:03)
== END 2023-01-13 14:24 | disposition left against medical advice (07) ==
LOC: ED 08:46
DX: M06.9 Rheumatoid arthritis, unspecified (principal); M25.461 Effusion, right knee; J45.909 Unspecified asthma, uncomplicated; F17.200 Nicotine dependence, unspecified, uncomplicated; Z79.899 Other long term (current) drug therapy
CPT/HCPCS: 20610; 36415; 73560; 73700; 80053; 83605; 85025; 85060; 85651; 86140; 87070; 87205; 89051; 99284-25; J1885

== ENCOUNTER 2024-08-13 10:30 | Emergency (ER) | payer OTHER ==
[~2024-08-13] VITALS: Ht 152.4 cm; Wt 67.0 kg
[~2024-08-13 10:30] MED LIST changes: +ACTEMRA AC162 MG/0.9; +BUPRENORPHINE HC8 MG SL; +VENTOLIN HFA18 GM INH
[2024-08-13 10:54] VITALS: BP 119/95
== END 2024-08-13 10:54 | disposition home or self-care (01) ==
LOC: ED 10:30
DX: Z00.8 Encounter for other general examination (principal); F11.10 Opioid abuse, uncomplicated; J45.909 Unspecified asthma, uncomplicated; M06.9 Rheumatoid arthritis, unspecified; F17.200 Nicotine dependence, unspecified, uncomplicated
CPT/HCPCS: 99283

== ENCOUNTER 2024-12-09 10:16 | Emergency (ER) | payer OTHER ==
[~2024-12-09] VITALS: Ht 152.4 cm; Wt 73.9 kg
[2024-12-09] MEDS ORDERED: BUPRENORPHIN-N1 EACH SL (11:08)
[2024-12-09 11:14] VITALS: BP 107/69
== END 2024-12-09 11:15 | disposition home or self-care (01) ==
LOC: ED 10:16
DX: Z76.0 Encounter for issue of repeat prescription (principal); J45.909 Unspecified asthma, uncomplicated; M06.9 Rheumatoid arthritis, unspecified; F17.200 Nicotine dependence, unspecified, uncomplicated; Z79.899 Other long term (current) drug therapy
CPT/HCPCS: 99281